=== PATIENT | male | born 1985 | race Caucasian/White ===

== ENCOUNTER 2016-04-29 21:40 | Inpatient (IN) | payer MEDICARE, OTHER ==
[2016-04-29 22:26] VITALS: BMI 21.9
--- NOTE | 2016-04-29 22:32 | HP ---
COWS - Scale Resting Pulse: 1= [place] 81-100 Sweatin=Flushed/Facial Moisture Restless Observation: 3= Extraneous Movement Pupil Size: 1= Pupils >than Normal Bone or Joint Aches: 4=Acute Joint/Muscle Pain Runny Nose/ Eye Tearin= Runny Nose/Eyes GI Upset > 30mins: 1= Stomach Cramp Tremor Observation: 2= Slight Tremor Visible Yawning Observation: 0= None Anxiety or Irritability: 2=Irritable/Anxious Goose Flesh Skin: 0=Smooth Skin COWS Score: 18 Admission ROS S - HPI Chief Complaint: WITHDRAWAL SX'S. SEEKING DETOX TXMENT Allergies/Adverse Reactions: Allergies Allergy/AdvReac Type Severity Reaction Status Date / Time No Known Allergies Allergy Verified 04/29/16 22:23 History of Present Illness: 89 Y.O MALE WITH OPIOID DEPENDENCE LAST HER 07/2015 ADMITTED FOR DETOX TXMENT. CLIENT DENIES ANY SIGNIFICANT CLEAN TIME. HE IS AWARE THAT HIS TXMENT WILL BE APPROX 7 DAYS AND HAS AGREED TO LOS. Exam Limitations: No Limitations - Ebola screening Have you traveled outside of the country in the last 21 days: No (N) Have you had contact with anyone from an Ebola affected area: No Have you been sick,other than usual withdrawal symptoms: No Do you have a fever: No - Review of Systems Constitutional: Chills, Loss of Appetite, Malaise, Night Sweats, Changes in sleep EENT: reports: Nose Congestion, Dental Problems (DENTAL PAIN) Respiratory: reports: No Symptoms reported Cardiac: reports: No Symptoms Reported GI: reports: Poor Appetite, Abdominal cramping : reports: No Symptoms Reported Musculoskeletal: reports: Back Pain, Joint Pain Integumentary: reports: No Symptoms Reported Neuro: reports: No Symptoms reported Endocrine: reports: No Symptoms Reported Hematology: reports: No Symptoms Reported Psychiatric: reports: No Sypmtoms Reported Other Systems: Reviewed and Negative Patient History - Patient Medical History Hx Anemia: No Hx Asthma: No Hx Chronic Obstructive Pulmonary Disease (COPD): No Hx Cancer: No Hx Cardiac Disorders: No Hx Congestive Heart Failure: No Hx Hypertension: No Hx Hypercholesterolemia: No Hx Pacemaker: No HX Cerebrovascular Accident: No Hx Seizures: No Hx Dementia: No Hx Diabetes: No Hx Gastrointestinal Disorders: No Hx Liver Disease: No Hx Genitourinary Disorders: No Hx Sexually Transmitted Disorders: No Hx Renal Disease (ESRD): No Hx Thyroid Disease: No Hx Human Immunodeficiency Virus (HIV): No Hx Hepatitis C: No Hx Depression: No Hx Suicide Attempt: No Hx Bipolar Disorder: No Hx Schizophrenia: No Other Medical History: DENIES - Patient Surgical History Past Surgical History: No Hx Neurologic Surgery: No Hx Cataract Extraction: No Hx Cardiac Surgery: No Hx Lung Surgery: No Hx Breast Surgery: No Hx Breast Biopsy: No Hx Abdominal Surgery: No Hx Appendectomy: No Hx Cholecystectomy: No Hx Genitourinary Surgery: No Hx Section: No Hx Orthopedic Surgery: No Anesthesia Reaction: No - PPD History Previous Implant?: Yes Documented Results: Negative w/proof Implanted On Prior [facility] Admission?: Yes Date: 03/20/15 Results: 0MM PPD to be Administered?: No - Smoking Cessation Smoking history: Current every day smoker Have you smoked in the past 12 months: Yes Aproximately how many cigarettes per day: 20 Hx Chewing Tobacco Use: No Initiated information on smoking cessation: Yes 'Breaking Loose' booklet given: 04/29/16 - Substance & Tx. History Hx Alcohol Use: No Hx Substance Use: Yes Substance Use Type: Heroin, Marijuana Hx Substance Use Treatment: Yes ([facility]) - Substances Abused HEROIN Route: Injection Frequency: Daily Amount used: 20 BAGS Age of first use: 26 Date of Last Use: 04/29/16 (10 BAGS) THC Route: Smoking Frequency: Daily Amount used: 1 JOINT Age of first use: 12 Date of Last Use: 04/27/16 Family Disease History - Family Disease History Family History: Denies Admission Physical Exam S - Vital Signs Vital Signs: Vital Signs - 24 hr 04/29/16 22:23 Temperature 96.0 F L Pulse Rate 81 Respiratory 20 Rate Blood Pressure 130/74 - Physical General Appearance: Yes: Appropriately Dressed, Mild Distress, Tremorous, Anxious HEENTM: Yes: EOMI, Normocephalic, Normal Voice, LINNETTE, Pharynx Normal, Nasal Congestion Respiratory: Yes: Chest Non-Tender, Lungs Clear, Normal Breath Sounds, No Respiratory Distress, No Accessory Muscle Use Neck: Yes: No masses,lesions,Nodules, Supple, Trachea in good position Breast: Yes: Breast Exam Deferred Cardiology: Yes: Regular Rhythm, Regular Rate, S1, S2 Abdominal: Yes: Normal Bowel Sounds, Non Tender, Soft Genitourinary: Yes: Within Normal Limits Back: Yes: Normal Inspection Musculoskeletal: Yes: full range of Motion, Gait Steady Extremities: Yes: Normal Capillary Refill, Normal Range of Motion, Non-Tender, Tremors Neurological: Yes: voltage tester II-XII NML intact, Fully Oriented, Alert, Motor Strength 5/5 Integumentary: Yes: Normal Color, Warm, Moist Lymphatic: Yes: Within Normal Limits - Diagnostic (1) Nicotine dependence Current Visit: No Status: Chronic Qualifiers: Nicotine product type: cigarettes Substance use status: uncomplicated Qualified Code(s): F17.210 - Nicotine dependence, cigarettes, uncomplicated (2) Cannabis dependence, uncomplicated Current Visit: Yes Status: Chronic (3) Uncomplicated opioid dependence Current Visit: Yes Status: Chronic Cleared for Admission [facility] - Detox or Rehab [facility] Level of Care: Medically Managed Detox Regimen/Protocol: Methadone [facility] Breath Alcohol Content Breath Alcohol Content: 0 Urine Drug Screen - Results Urine Drug Screen Results: THC-Marijuana, OPI-Opiates, OXY-Oxycodone
[2016-04-29] MEDS ORDERED: MAG HYDROX/AL HYDROX/SIMETH 30 ML UNIT-DOSE CUP PO PRN (22:40)
[2016-04-29] MEDS ORDERED: LOPERAMIDE HCL 2 MG CAPSULE PO PRN (22:40)
[2016-04-29] MEDS ORDERED: METHADONE HCL 10 MG TABLET (FOR DETOX USE ONLY) PO ONE ×2 (22:40→23:00)
[2016-04-29] MEDS ORDERED: NICOTINE POLACRILEX 2 MG GUM BC PRN (22:40)
[2016-04-29] MEDS ORDERED: MENTHOL/PHENOL 1 EACH UD MM PRN (22:40)
[2016-04-29] MEDS ORDERED: guaiFENesin/D-METHORPHAN HB 10 ML UNIT-DOSE CUPS PO PRN (22:40)
[2016-04-29] MEDS ORDERED: MAGNESIUM CITRATE 300 ML BOTTLE PO PRN (22:40)
[2016-04-29] MEDS ORDERED: ACETAMINOPHEN 325 MG TABLET (FP) PO PRN (22:40)
[2016-04-29] MEDS ORDERED: hydrOXYzine PAMOATE 50 MG CAPSULE (FP) PO PRN (22:40)
[2016-04-29] MEDS ORDERED: diphenhydrAMINE HCL 50 MG CAPSULE PO PRN (22:40)
[2016-04-29] MEDS ORDERED: IBUPROFEN 400 MG TABLET (FP) PO PRN (22:40)
[2016-04-29] MEDS ORDERED: P-EPHED 60MG/TRIPROLIDI 2.5MG TABLET PO PRN (22:40)
[2016-04-29] MEDS ORDERED: MAGNESIUM HYDROX 2400MG/30ML ORAL SUSPENSION 30 ML CUP PO PRN (22:40)
[2016-04-29] MEDS: diazePAM 5 MG TABLET PO PRN (23:36)
[2016-04-30] MEDS: diazePAM 5 MG TABLET PO PRN ×2 (08:29→20:11)
[2016-04-30] MEDS ORDERED: METHADONE HCL 10 MG TABLET (FOR DETOX USE ONLY) PO ONE (10:00)
[2016-04-30] MEDS ORDERED: NICOTINE 21 MG/24 HOURS TOPICAL PATCH TD SCH (10:00)
[2016-04-30] MEDS ORDERED: PRENATAL VITAMINS W/ FOLIC ACID TABLET (FP) PO SCH (10:00)
[2016-04-30 10:15] LABS: ALBUMIN 3.2 g/dl (3.4-5.0)
[2016-04-30 10:18] LABS: ALK PHOS 81 U/L (45-117); ANION GAP 8 (8-16); BILIRUBIN,TOTAL 0.1 mg/dL (0.2-1.0); CALCIUM 8.6 mg/dL (8.5-10.1); CO2 28 mmol/L (21-32); CREATININE 0.8 mg/dL (0.7-1.3); GLUCOSE,RANDOM 81 mg/dL (74-106); SGOT/AST 18 U/L (15-37); SGPT/ALT 21 U/L (12-78); TOT PROT 6.2 g/dl (6.4-8.2)
[2016-04-30 10:31] LABS: MCH 26.4 pg (25.7-33.7); MCHC 32.1 g/dl (32.0-35.9); MEAN CELL VOLUME 82.4 fl (80-96); MEAN PLT VOLUME 8.9 fl (7.5-11.1); PLATELET COUNT 212 K/MM3 (134-434); RDW 15.9 % (11.9-15.9)
--- NOTE | 2016-04-30 13:35 | EKG ---
Test Reason : Blood Pressure : / mmHG Vent. Rate : 069 BPM Atrial Rate : 069 BPM P-R Int : 126 ms QRS Dur : 088 ms QT Int : 392 ms P-R-T Axes : 034 023 035 degrees QTc Int : 420 ms NORMAL SINUS RHYTHM NORMAL ECG NO PREVIOUS ECGS AVAILABLE Confirmed by YOSELIN LIN MD ([id number]) on 04/30/2016 1:35:11 PM Referred By: Confirmed By:YOSELIN LIN MD
--- NOTE | 2016-04-30 17:49 | PN ---
S COWS - Scale Resting Pulse: 0= [place] 80 or Below Sweatin=Flushed/Facial Moisture Restless Observation: 1= Difficult to Sit Still Pupil Size: 0= Normal to Room Light Bone or Joint Aches: 2= Severe Diffuse Aches Runny Nose/ Eye Tearin= Nasal Congestion GI Upset > 30mins: 2= Nausea/Diarrhea Tremor Observation of Outstretched Hands: 2= Slight Tremor Visible Yawning Observation: 1= 1-2x During Session Anxiety or Irritability: 2=Irritable/Anxious Goose Flesh Skin: 0=Smooth Skin COWS Score: 13 BHS Progress Note (SOAP) Subjective: ANXIETY,TREMORS,INTERRUPTED SLEEP,RESTLESS,BODY ACHES Objective: 04/30/16 17:48 Laboratory Last Values WBC 8.0 K/mm3 (4.0-10.0) 04/30/16 07:00 RBC 4.32 M/mm3 (4.00-5.60) 04/30/16 07:00 Hgb 11.4 GM/dL (11.7-16.9) L 04/30/16 07:00 Hct 35.6 % (35.4-49) 04/30/16 07:00 MCV 82.4 fl (80-96) 04/30/16 07:00 MCHC 32.1 g/dl (32.0-35.9) 04/30/16 07:00 RDW 15.9 % (11.9-15.9) 04/30/16 07:00 Plt Count 212 K/MM3 (134-434) 04/30/16 07:00 MPV 8.9 fl (7.5-11.1) 04/30/16 07:00 Sodium 142 mmol/L (136-145) 04/30/16 07:00 Potassium 4.3 mmol/L (3.5-5.1) 04/30/16 07:00 Chloride 106 mmol/L (98-107) 04/30/16 07:00 Carbon Dioxide 28 mmol/L (21-32) 04/30/16 07:00 Anion Gap 8 (8-16) 04/30/16 07:00 BUN 21 mg/dL (7-18) H 04/30/16 07:00 Creatinine 0.8 mg/dL (0.7-1.3) 04/30/16 07:00 Creat Clearance w eGFR > 60 (>60) 04/30/16 07:00 Random Glucose 81 mg/dL (74-106) 04/30/16 07:00 Calcium 8.6 mg/dL (8.5-10.1) 04/30/16 07:00 Total Bilirubin 0.1 mg/dL (0.2-1.0) L D 04/30/16 07:00 AST 18 U/L (15-37) D 04/30/16 07:00 ALT 21 U/L (12-78) D 04/30/16 07:00 Alkaline Phosphatase 81 U/L (45-117) 04/30/16 07:00 Total Protein 6.2 g/dl (6.4-8.2) L 04/30/16 07:00 Albumin 3.2 g/dl (3.4-5.0) L 04/30/16 07:00 RPR Titer Nonreactive (NONREACTIVE) 04/30/16 07:00 LABS NOTED Vital Signs - 8 hr 04/30/16 04/30/16 13:19 17:28 Temperature 97.3 F L 97.4 F L Pulse Rate 63 60 Respiratory 18 16 Rate Blood Pressure 116/74 117/71 Assessment: 04/30/16 17:49 WITHDRAWAL SX. Plan: CONTINUE DETOX
[2016-04-30 21:48] LABS: URINE APPEARANCE CLEAR; URINE BILIRUBIN NEGATIVE (NEGATIVE); URINE BLOOD NEGATIVE (NEGATIVE); URINE COLOR LTYELLOW; URINE GLUCOSE (UA) NEGATIVE (NEGATIVE); URINE KETONE NEGATIVE (NEGATIVE); URINE LEUK ESTERASE NEGATIVE (NEGATIVE); URINE NITRITE NEGATIVE (NEGATIVE); URINE PROTEIN NEGATIVE (NEGATIVE); URINE UROBILINOGEN NEGATIVE E.U./dl (0.2-1.0)
[2016-04-30] MEDS ORDERED: THIAMINE HCL 100 MG TABLET (FP) PO SCH (22:00)
[2016-05-01 07:00] VITALS: BP 130/92; PULSE 59; TEMP 96.3
[2016-05-01] MEDS ORDERED: METHADONE HCL 5 MG TABLET (FOR DETOX USE ONLY) PO ONE (10:00)
--- NOTE | 2016-05-01 10:32 | DS ---
[facility] Detox Discharge Summary Admission Date: 04/29/16 Discharge Date: 05/01/16 - History Present History: Cannabis Dependence, Opioid Dependence Pertinent Past History: INSOMNIA - Physical Exam Results Vital Signs: Vital Signs Temperature 96.3 F L 05/01/16 06:59 Pulse Rate 59 L 05/01/16 06:59 Respiratory Rate 18 05/01/16 06:59 Blood Pressure 130/92 05/01/16 06:59 O2 Sat by Pulse Oximetry (%) Pertinent Admission Physical Exam Findings: WITHDRAWAL SX. Laboratory Tests 04/30/16 04/30/16 04/30/16 07:00 07:00 07:00 WBC 8.0 RBC 4.32 Hgb 11.4 L Hct 35.6 MCV 82.4 MCHC 32.1 RDW 15.9 Plt Count 212 MPV 8.9 Sodium 142 Potassium 4.3 Chloride 106 Carbon Dioxide 28 Anion Gap 8 BUN 21 H Creatinine 0.8 Creat Clearance w eGFR > 60 Random Glucose 81 Calcium 8.6 Total Bilirubin 0.1 L D AST 18 D ALT 21 D Alkaline Phosphatase 81 Total Protein 6.2 L Albumin 3.2 L Urine Color Urine Appearance Urine pH Ur Specific [place] Urine Protein Urine Glucose (UA) Urine Ketones Urine Blood Urine Nitrite Urine Bilirubin Urine Urobilinogen Ur Leukocyte Esterase RPR Titer Nonreactive 04/30/16 20:30 WBC RBC Hgb Hct MCV MCHC RDW Plt Count MPV Sodium Potassium Chloride Carbon Dioxide Anion Gap BUN Creatinine Creat Clearance w eGFR Random Glucose Calcium Total Bilirubin AST ALT Alkaline Phosphatase Total Protein Albumin Urine Color Ltyellow Urine Appearance Clear Urine pH 6.0 D Ur Specific [place] 1.026 Urine Protein Negative Urine Glucose (UA) Negative Urine Ketones Negative Urine Blood Negative Urine Nitrite Negative Urine Bilirubin Negative Urine Urobilinogen Negative Ur Leukocyte Esterase Negative RPR Titer LABS NOTED - Medication Discharge Medications: Ambulatory Orders NK [No Known Home Medication] 12/12/13 - Diagnosis (1) Cannabis dependence, uncomplicated Current Visit: Yes Status: Chronic (2) Insomnia Current Visit: No Status: Chronic Qualifiers: Insomnia type: alcohol-induced Qualified Code(s): 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
[2016-05-02] MEDS ORDERED: METHADONE HCL 5 MG TABLET (FOR DETOX USE ONLY) PO ONE (10:00)
[2016-05-03] MEDS ORDERED: METHADONE HCL 10 MG TABLET (FOR DETOX USE ONLY) PO ONE (10:00)
[2016-05-04] MEDS ORDERED: METHADONE HCL 5 MG TABLET (FOR DETOX USE ONLY) PO ONE (06:00)
== END 2016-05-01 09:30 | disposition left against medical advice (07) | DRG 770 ==
LOC: YASAS 21:40 → Y3N 22:36
PROVIDERS: ADMIT Internal Medicine; ATTEND Internal Medicine
PROC: HZ2ZZZZ Detoxification Services for Substance Abuse Treatment (ICD-10-PCS; principal; 2016-05-01)
DX: F11.23 Opioid dependence with withdrawal (principal); F14.20 Cocaine dependence, uncomplicated; F17.210 Nicotine dependence, cigarettes, uncomplicated; F10.982 Alcohol use, unspecified with alcohol-induced sleep disorder
CPT/HCPCS: 36415; 80053; 81003; 85027; 86593; 93005; 93010

== ENCOUNTER 2016-12-09 19:15 | Inpatient (IN) | payer OTHER ==
[2016-12-09 19:55] VITALS: BMI 20.3
--- NOTE | 2016-12-09 21:15 | HP ---
COWS - Scale Resting Pulse: 0= [place] 80 or Below Sweatin=Flushed/Facial Moisture Restless Observation: 5= Unable to Sit Still Pupil Size: 0= Normal to Room Light Bone or Joint Aches: 4=Acute Joint/Muscle Pain Runny Nose/ Eye Tearin= None GI Upset > 30mins: 3= Vomiting/Diarrhea Tremor Observation: 2= Slight Tremor Visible Yawning Observation: 0= None Anxiety or Irritability: 2=Irritable/Anxious Goose Flesh Skin: 0=Smooth Skin COWS Score: 18 Admission [facility] Chief Complaint: C/O WITHDRAWAL SX'S SEEKING DETOX Allergies/Adverse Reactions: Allergies Allergy/AdvReac Type Severity Reaction Status Date / Time No Known Allergies Allergy Verified 04/29/16 22:23 History of Present Illness: 31 Y.O. MALE WITH OPIOID DEPENDENCE ADMITTED TO DETOX. CLIENT IS KNOWN TO [facility]. DENIES ANY DETOX/ REHAB SERVICES SINCE LAST ADMISSION/2016. SELF REFFERED. DENIES ANY SIGNIFICANT PERIOD OF CLEAN TIME Exam Limitations: No Limitations - Ebola screening Have you traveled outside of the country in the last 21 days: No (N) Have you had contact with anyone from an Ebola affected area: No Have you been sick,other than usual withdrawal symptoms: No Do you have a fever: No - Review of Systems Constitutional: Chills, Loss of Appetite, Night Sweats, Changes in sleep EENT: reports: Dental Problems (MISSING TEETH) Respiratory: reports: No Symptoms reported Cardiac: reports: No Symptoms Reported GI: reports: Diarrhea, Nausea, Poor Appetite : reports: No Symptoms Reported Musculoskeletal: reports: Back Pain Integumentary: reports: No Symptoms Reported Neuro: reports: No Symptoms reported Endocrine: reports: No Symptoms Reported Psychiatric: reports: No Sypmtoms Reported Other Systems: Reviewed and Negative Patient History - Patient Medical History Hx Anemia: No Hx Asthma: No Hx Chronic Obstructive Pulmonary Disease (COPD): No Hx Cancer: No Hx Cardiac Disorders: No Hx Congestive Heart Failure: No Hx Hypertension: No Hx Hypercholesterolemia: No Hx Pacemaker: No HX Cerebrovascular Accident: No Hx Seizures: No Hx Dementia: No Hx Diabetes: No Hx Gastrointestinal Disorders: No Hx Liver Disease: No Hx Genitourinary Disorders: No Hx Sexually Transmitted Disorders: No Hx Renal Disease (ESRD): No Hx Thyroid Disease: No Hx Human Immunodeficiency Virus (HIV): No Hx Hepatitis C: No Hx Depression: No Hx Suicide Attempt: No Hx Bipolar Disorder: No Hx Schizophrenia: No Other Medical History: DENIES - Patient Surgical History Past Surgical History: No Hx Neurologic Surgery: No Hx Cataract Extraction: No Hx Cardiac Surgery: No Hx Lung Surgery: No Hx Breast Surgery: No Hx Breast Biopsy: No Hx Abdominal Surgery: No Hx Appendectomy: No Hx Cholecystectomy: No Hx Genitourinary Surgery: No Hx Section: No Hx Orthopedic Surgery: No Anesthesia Reaction: No - PPD History Previous Implant?: Yes Documented Results: Negative w/proof Implanted On Prior [facility] Admission?: Yes Date: 03/20/15 Results: 0MM PPD to be Administered?: Yes - Smoking Cessation Smoking history: Current every day smoker Have you smoked in the past 12 months: Yes Aproximately how many cigarettes per day: 20 Cigars Per Day: 0 Hx Chewing Tobacco Use: No Initiated information on smoking cessation: Yes 'Breaking Loose' booklet given: 12/09/16 - Substance & Tx. History Hx Alcohol Use: No Hx Substance Use: Yes Substance Use Type: Cocaine, Heroin, Marijuana Hx Substance Use Treatment: Yes ([facility]) - Substances Abused HEROIN Route: Injection Frequency: Daily Amount used: 10BAGS Age of first use: 25 Date of Last Use: 12/08/16 THC Route: Smoking Frequency: 1-2 times per week Amount used: 1 JOINT Age of first use: 12 Date of Last Use: 12/05/16 COCAINE Route: Smoking Frequency: Daily Amount used: $100 Age of first use: 25 Date of Last Use: 12/08/16 Family Disease History - Family Disease History Family History: Denies Admission Physical Exam [facility] - Vital Signs Vital Signs: Vital Signs - 24 hr 12/09/16 19:53 Temperature 98.2 F Pulse Rate 76 Respiratory 18 Rate Blood Pressure 140/80 - Physical General Appearance: Yes: Appropriately Dressed, Mild Distress, Tremorous HEENTM: Yes: EOMI, Normal ENT Inspection, Normocephalic, LINNETTE, Pharynx Normal Respiratory: Yes: Chest Non-Tender, Lungs Clear, Normal Breath Sounds, No Respiratory Distress, No Accessory Muscle Use Neck: Yes: No masses,lesions,Nodules, Supple, Trachea in good position Breast: Yes: Breast Exam Deferred Cardiology: Yes: Regular Rhythm, Regular Rate, S1, S2 Abdominal: Yes: Normal Bowel Sounds, Non Tender, Soft Genitourinary: Yes: Within Normal Limits Back: Yes: Normal Inspection Musculoskeletal: Yes: full range of Motion, Gait Steady Extremities: Yes: Normal Capillary Refill, Normal Range of Motion, Non-Tender, Tremors Neurological: Yes: juice standardizer II-XII NML intact, Fully Oriented, Alert, Motor Strength 5/5 Integumentary: Yes: Warm, Moist, Track Mcn[place] Lymphatic: Yes: Within Normal Limits - Diagnostic (1) Cannabis dependence, uncomplicated Current Visit: Yes Status: Chronic (2) Nicotine dependence Current Visit: Yes Status: Chronic Qualifiers: Nicotine product type: cigarettes Substance use status: uncomplicated Qualified Code(s): F17.210 - Nicotine dependence, cigarettes, uncomplicated (3) Opioid dependence with withdrawal Current Visit: Yes Status: Chronic (4) Cocaine dependence, uncomplicated Current Visit: Yes Status: Chronic Cleared for Admission [facility] - Detox or Rehab [facility] Level of Care: Medically Managed Detox Regimen/Protocol: Methadone [facility] Breath Alcohol Content Breath Alcohol Content: 0 Urine Drug Screen - Results Drug Screen Negative: No Urine Drug Screen Results: THC-Marijuana, BUDDY-Cocaine, OPI-Opiates
[2016-12-09] MEDS ORDERED: MAGNESIUM CITRATE 300 ML BOTTLE PO PRN (21:29)
[2016-12-09] MEDS ORDERED: LOPERAMIDE HCL 2 MG CAPSULE PO PRN (21:29)
[2016-12-09] MEDS ORDERED: MENTHOL/PHENOL 1 EACH UD MM PRN (21:29)
[2016-12-09] MEDS ORDERED: guaiFENesin/D-METHORPHAN HB 10 ML UNIT-DOSE CUPS PO PRN (21:29)
[2016-12-09] MEDS ORDERED: METHADONE HCL 10 MG TABLET (FOR DETOX USE ONLY) PO ONE ×2 (21:29→23:00)
[2016-12-09] MEDS ORDERED: ACETAMINOPHEN 325 MG TABLET (FP) PO PRN (21:29)
[2016-12-09] MEDS ORDERED: MAGNESIUM HYDROX 2400MG/30ML ORAL SUSPENSION 30 ML CUP PO PRN (21:29)
[2016-12-09] MEDS ORDERED: P-EPHED 60MG/TRIPROLIDI 2.5MG TABLET PO PRN (21:29)
[2016-12-09] MEDS ORDERED: IBUPROFEN 400 MG TABLET (FP) PO PRN (21:29)
[2016-12-09] MEDS ORDERED: NICOTINE POLACRILEX 2 MG GUM BUC PRN (21:29)
[2016-12-09] MEDS ORDERED: MAG HYDROX/AL HYDROX/SIMETH 30 ML UNIT-DOSE CUP PO PRN (21:29)
[2016-12-09] MEDS: diazePAM 5 MG TABLET PO PRN (23:10)
[2016-12-09] MEDS: THIAMINE HCL 100 MG TABLET (FP) PO SCH (23:13)
[2016-12-10] MEDS ORDERED: METHADONE HCL 10 MG TABLET (FOR DETOX USE ONLY) PO ONE (10:00)
[2016-12-10 10:06] LABS: MCH 26.1 pg (25.7-33.7); MEAN CELL VOLUME 81.7 fl (80-96); MEAN PLT VOLUME 8.8 fl (7.5-11.1); PLATELET COUNT 213 K/MM3 (134-434); RDW 14.9 % (11.9-15.9); WHITE BLOOD COUNT 6.7 K/mm3 (4.0-10.0)
[2016-12-10] MEDS: PRENATAL VITAMINS W/ FOLIC ACID TABLET (FP) PO SCH (10:19)
[2016-12-10] MEDS: NICOTINE 14 MG/24 HOURS TOPICAL PATCH TD SCH (10:20)
[2016-12-10] MEDS: diazePAM 5 MG TABLET PO PRN ×2 (10:24→22:19)
[2016-12-10] MEDS ORDERED: ONDANSETRON *ODT* 4 MG TABLET SL PRN (10:41)
[2016-12-10 10:53] LABS: ALBUMIN 3.3 g/dl (3.4-5.0); ALK PHOS 76 U/L (45-117); ANION GAP 6 (8-16); BILIRUBIN,TOTAL 0.2 mg/dL (0.2-1.0); CALCIUM 8.6 mg/dL (8.5-10.1); CO2 28 mmol/L (21-32); CREATININE 0.6 mg/dL (0.7-1.3); GLUCOSE,RANDOM 84 mg/dL (74-106); SGOT/AST 20 U/L (15-37); SGPT/ALT 23 U/L (12-78); TOT PROT 6.6 g/dl (6.4-8.2)
--- NOTE | 2016-12-10 12:14 | EKG ---
Test Reason : Blood Pressure : / mmHG Vent. Rate : 061 BPM Atrial Rate : 061 BPM P-R Int : 124 ms QRS Dur : 086 ms QT Int : 420 ms P-R-T Axes : 053 031 033 degrees QTc Int : 422 ms NORMAL SINUS RHYTHM NORMAL ECG WHEN COMPARED WITH ECG OF 09-DEC-2016 23:19, NO SIGNIFICANT CHANGE WAS FOUND Confirmed by YOSELIN LIN MD ([id number]) on 12/10/2016 12:14:26 PM Referred By: Confirmed By:YOSELIN LIN MD
--- NOTE | 2016-12-10 12:15 | EKG ---
Test Reason : Blood Pressure : / mmHG Vent. Rate : 052 BPM Atrial Rate : 052 BPM P-R Int : 122 ms QRS Dur : 088 ms QT Int : 444 ms P-R-T Axes : 060 036 045 degrees QTc Int : 412 ms SINUS BRADYCARDIA WITH SINUS ARRHYTHMIA OTHERWISE NORMAL ECG WHEN COMPARED WITH ECG OF 29-APR-2016 23:45, T WAVE AMPLITUDE HAS INCREASED IN ANTERIOR LEADS Confirmed by RILEY LUNA, YOSELIN ([id number]) on 12/10/2016 12:14:51 PM Referred By: Confirmed By:YOSELIN LIN MD
[2016-12-10] MEDS ORDERED: CYCLOBENZAPRINE HCL 10 MG TABLET (FP) PO PRN (15:45)
--- NOTE | 2016-12-10 15:46 | PN ---
BHS COWS - Scale Resting Pulse: 0= [place] 80 or Below Sweatin= Chills/Flushing Restless Observation: 1= Difficult to Sit Still Pupil Size: 0= Normal to Room Light Bone or Joint Aches: 2= Severe Diffuse Aches Runny Nose/ Eye Tearin= Nasal Congestion GI Upset > 30mins: 3= Vomiting/Diarrhea Tremor Observation of Outstretched Hands: 2= Slight Tremor Visible Yawning Observation: 1= 1-2x During Session Anxiety or Irritability: 2=Irritable/Anxious Goose Flesh Skin: 0=Smooth Skin COWS Score: 13 BHS Progress Note (SOAP) Subjective: Body Aches, Stomach Cramping, Vomiting, Tremors, H/A, Diarrhea, Interrupted sleep, Sweating. Objective: PT. A & O X 3, OBSERVED AMBULATING ON UNIT. NO ACUTE DISTRESS. PT. DENIES CHEST PAIN. 12/10/16 15:47 Vital Signs Temperature 97.6 F 12/10/16 09:26 Pulse Rate 74 12/10/16 09:26 Respiratory Rate 16 12/10/16 09:26 Blood Pressure 131/86 12/10/16 09:26 O2 Sat by Pulse Oximetry (%) Laboratory Tests 12/10/16 12/10/16 12/10/16 07:00 07:00 07:00 WBC 6.7 RBC 4.37 Hgb 11.4 L Hct 35.7 MCV 81.7 MCH 26.1 MCHC 32.0 RDW 14.9 Plt Count 213 MPV 8.8 Sodium 140 Potassium 4.3 Chloride 106 Carbon Dioxide 28 Anion Gap 6 L BUN 14 D Creatinine 0.6 L D Creat Clearance w eGFR > 60 Random Glucose 84 Calcium 8.6 Total Bilirubin 0.2 D AST 20 ALT 23 Alkaline Phosphatase 76 Total Protein 6.6 Albumin 3.3 L RPR Titer Nonreactive LABS NOTED. HCV AB AND UA RESULTS PENDING. 12/10/16 15:48 Assessment: 12/10/16 15:48 WITHDRAWAL SYMPTOMS. Plan: CONTINUE DETOX. PRN ZOFRAN SL FOR NAUSEA / VOMITING. PRN FLEXERIL PO FOR BODY ACHES / MUSCLE SPASMS. PRN IMMODIUM FOR DIARRHEA.
[2016-12-10 17:20] LABS: URINE APPEARANCE CLEAR; URINE BILIRUBIN NEGATIVE (NEGATIVE); URINE BLOOD NEGATIVE (NEGATIVE); URINE COLOR LTYELLOW; URINE GLUCOSE (UA) NEGATIVE (NEGATIVE); URINE KETONE NEGATIVE (NEGATIVE); URINE LEUK ESTERASE NEGATIVE (NEGATIVE); URINE NITRITE NEGATIVE (NEGATIVE); URINE PROTEIN NEGATIVE (NEGATIVE); URINE UROBILINOGEN NEGATIVE mg/dL (0.2-1.0)
[2016-12-10] MEDS: hydrOXYzine PAMOATE 50 MG CAPSULE (FP) PO PRN (17:32)
[2016-12-10] MEDS: THIAMINE HCL 100 MG TABLET (FP) PO SCH (22:17)
[2016-12-10] MEDS: diphenhydrAMINE HCL 50 MG CAPSULE PO PRN (22:18)
[2016-12-11] MEDS: diphenhydrAMINE HCL 50 MG CAPSULE PO PRN (00:52)
[2016-12-11] MEDS: hydrOXYzine PAMOATE 50 MG CAPSULE (FP) PO PRN (03:21)
[2016-12-11] MEDS: diazePAM 5 MG TABLET PO PRN ×2 (03:21→09:31)
[2016-12-11] MEDS: PRENATAL VITAMINS W/ FOLIC ACID TABLET (FP) PO SCH (09:31)
[2016-12-11] MEDS: NICOTINE 14 MG/24 HOURS TOPICAL PATCH TD SCH (09:31)
[2016-12-11] MEDS ORDERED: METHADONE HCL 5 MG TABLET (FOR DETOX USE ONLY) PO ONE (10:00)
--- NOTE | 2016-12-11 15:52 | PN ---
BHS COWS - Scale Resting Pulse: 0= [place] 80 or Below Sweatin=Flushed/Facial Moisture Restless Observation: 1= Difficult to Sit Still Pupil Size: 0= Normal to Room Light Bone or Joint Aches: 2= Severe Diffuse Aches Runny Nose/ Eye Tearin= Runny Nose/Eyes GI Upset > 30mins: 2= Nausea/Diarrhea Tremor Observation of Outstretched Hands: 2= Slight Tremor Visible Yawning Observation: 1= 1-2x During Session Anxiety or Irritability: 2=Irritable/Anxious Goose Flesh Skin: 0=Smooth Skin COWS Score: 14 BHS Progress Note (SOAP) Subjective: Anxiety,tremors,sweating,interrupted sleep,restless,body aches. Objective: 12/11/16 15:51 Vital Signs - 8 hr 12/11/16 12/11/16 09:43 13:09 Temperature 96.9 F L 97.0 F L Pulse Rate 63 43 L Respiratory 18 18 Rate Blood Pressure 123/84 124/84 Laboratory Tests 12/09/16 12/10/16 12/10/16 07:00 07:00 07:00 WBC 6.7 RBC 4.37 Hgb 11.4 L Hct 35.7 MCV 81.7 MCH 26.1 MCHC 32.0 RDW 14.9 Plt Count 213 MPV 8.8 Sodium 140 Potassium 4.3 Chloride 106 Carbon Dioxide 28 Anion Gap 6 L BUN 14 D Creatinine 0.6 L D Creat Clearance w eGFR > 60 Random Glucose 84 Calcium 8.6 Total Bilirubin 0.2 D AST 20 ALT 23 Alkaline Phosphatase 76 Total Protein 6.6 Albumin 3.3 L Urine Color Urine Appearance Urine pH Ur Specific [place] Urine Protein Urine Glucose (UA) Urine Ketones Urine Blood Urine Nitrite Urine Bilirubin Urine Urobilinogen RPR Titer Hepatitis C Antibody 0.2 12/10/16 12/10/16 07:00 16:56 WBC RBC Hgb Hct MCV MCH MCHC RDW Plt Count MPV Sodium Potassium Chloride Carbon Dioxide Anion Gap BUN Creatinine Creat Clearance w eGFR Random Glucose Calcium Total Bilirubin AST ALT Alkaline Phosphatase Total Protein Albumin Urine Color Ltyellow Urine Appearance Clear Urine pH 8.0 D Ur Specific [place] 1.015 Urine Protein Negative Urine Glucose (UA) Negative Urine Ketones Negative Urine Blood Negative Urine Nitrite Negative Urine Bilirubin Negative Urine Urobilinogen Negative RPR Titer Nonreactive Hepatitis C Antibody labs noted Assessment: 12/11/16 15:51 Withdrawal sx. Plan: Continue detox
[2016-12-11 21:44] VITALS: BP 126/94; PULSE 64; TEMP 97.2
[2016-12-11] MEDS ORDERED: ZOLPIDEM TARTRATE 10 MG TABLET (PARK CARE ONLY) PO PRN (22:00)
[2016-12-11] MEDS: THIAMINE HCL 100 MG TABLET (FP) PO SCH (22:28)
[2016-12-12] MEDS ORDERED: METHADONE HCL 5 MG TABLET (FOR DETOX USE ONLY) PO ONE (10:00)
--- NOTE | 2016-12-12 11:55 | DS ---
[facility] Detox Discharge Summary Admission Date: 12/09/16 Discharge Date: 12/12/16 - History Present History: Opioid Dependence Additional Comments: PT SIGNED OUT AMA FOR PERSONAL REASONS STATING " I CAME HERE ON MY OWN SO I'M LEAVING' STATES HE HAS NOT SLEPT MUCH. OFFERED PT RE-EVALUATION OF HIS SLEEPING AID BUT PATIENT REFUSED. Pertinent Past History: DENIES/UNREMARKABLE - Physical Exam Results Vital Signs: Vital Signs Temperature 97.2 F L 12/11/16 21:44 Pulse Rate 64 12/11/16 21:44 Respiratory Rate 18 12/12/16 03:30 Blood Pressure 126/94 12/11/16 21:44 O2 Sat by Pulse Oximetry (%) Pertinent Admission Physical Exam Findings: WITHDRAWAL SX Vital Signs Temperature 97.2 F L 12/11/16 21:44 Pulse Rate 64 12/11/16 21:44 Respiratory Rate 18 12/12/16 03:30 Blood Pressure 126/94 12/11/16 21:44 O2 Sat by Pulse Oximetry (%) Laboratory Last Values WBC 6.7 K/mm3 (4.0-10.0) 12/10/16 07:00 RBC 4.37 M/mm3 (4.00-5.60) 12/10/16 07:00 Hgb 11.4 GM/dL (11.7-16.9) L 12/10/16 07:00 Hct 35.7 % (35.4-49) 12/10/16 07:00 MCV 81.7 fl (80-96) 12/10/16 07:00 MCH 26.1 pg (25.7-33.7) 12/10/16 07:00 MCHC 32.0 g/dl (32.0-35.9) 12/10/16 07:00 RDW 14.9 % (11.9-15.9) 12/10/16 07:00 Plt Count 213 K/MM3 (134-434) 12/10/16 07:00 MPV 8.8 fl (7.5-11.1) 12/10/16 07:00 Sodium 140 mmol/L (136-145) 12/10/16 07:00 Potassium 4.3 mmol/L (3.5-5.1) 12/10/16 07:00 Chloride 106 mmol/L (98-107) 12/10/16 07:00 Carbon Dioxide 28 mmol/L (21-32) 12/10/16 07:00 Anion Gap 6 (8-16) L 12/10/16 07:00 BUN 14 mg/dL (7-18) D 12/10/16 07:00 Creatinine 0.6 mg/dL (0.7-1.3) L D 12/10/16 07:00 Creat Clearance w eGFR > 60 (>60) 12/10/16 07:00 Random Glucose 84 mg/dL (74-106) 12/10/16 07:00 Calcium 8.6 mg/dL (8.5-10.1) 12/10/16 07:00 Total Bilirubin 0.2 mg/dL (0.2-1.0) D 12/10/16 07:00 AST 20 U/L (15-37) 12/10/16 07:00 ALT 23 U/L (12-78) 12/10/16 07:00 Alkaline Phosphatase 76 U/L (45-117) 12/10/16 07:00 Total Protein 6.6 g/dl (6.4-8.2) 12/10/16 07:00 Albumin 3.3 g/dl (3.4-5.0) L 12/10/16 07:00 Urine Color Ltyellow 12/10/16 16:56 Urine Appearance Clear 12/10/16 16:56 Urine pH 8.0 (5.0-8.0) D 12/10/16 16:56 Ur Specific [place] 1.015 (1.005-1.025) 12/10/16 16:56 Urine Protein Negative (NEGATIVE) 12/10/16 16:56 Urine Glucose (UA) Negative (NEGATIVE) 12/10/16 16:56 Urine Ketones Negative (NEGATIVE) 12/10/16 16:56 Urine Blood Negative (NEGATIVE) 12/10/16 16:56 Urine Nitrite Negative (NEGATIVE) 12/10/16 16:56 Urine Bilirubin Negative (NEGATIVE) 12/10/16 16:56 Urine Urobilinogen Negative mg/dL (0.2-1.0) 12/10/16 16:56 RPR Titer Nonreactive (NONREACTIVE) 12/10/16 07:00 Hepatitis C Antibody 0.2 s/co ratio (0.0-0.9) 12/09/16 07:00 - Treatment Hospital Course: Discharged Condition Good - Medication Discharge Medications: Ambulatory Orders NK [No Known Home Medication] 12/12/13 - AMA Did Patient Leave Against Medical Advice: Yes (AMStephani)
[2016-12-13] MEDS ORDERED: METHADONE HCL 10 MG TABLET (FOR DETOX USE ONLY) PO ONE (10:00)
[2016-12-14] MEDS ORDERED: METHADONE HCL 5 MG TABLET (FOR DETOX USE ONLY) PO ONE (06:00)
== END 2016-12-12 09:06 | disposition left against medical advice (07) | DRG 770 ==
LOC: YASAS 19:15 → Y3N 21:56
PROVIDERS: ADMIT Internal Medicine; ATTEND Internal Medicine
PROC: HZ2ZZZZ Detoxification Services for Substance Abuse Treatment (ICD-10-PCS; principal; 2016-12-09)
DX: F11.23 Opioid dependence with withdrawal (principal); F14.20 Cocaine dependence, uncomplicated; F12.20 Cannabis dependence, uncomplicated; F17.213 Nicotine dependence, cigarettes, with withdrawal
CPT/HCPCS: 36415; 80053; 81003; 85027; 86593; 86803; 93005; 93010

== ENCOUNTER 2017-02-18 20:54 | Inpatient (IN) | payer OTHER ==
[2017-02-18 21:49] VITALS: BMI 20.2
--- NOTE | 2017-02-18 22:56 | HP ---
COWS - Scale Resting Pulse: 0= [place] 80 or Below Sweatin=Flushed/Facial Moisture Restless Observation: 0= Sits Still Pupil Size: 1= Pupils >than Normal Bone or Joint Aches: 4=Acute Joint/Muscle Pain Runny Nose/ Eye Tearin= Runny Nose/Eyes GI Upset > 30mins: 3= Vomiting/Diarrhea (vomiting x 4, diarrhea x 3) Tremor Observation: 2= Slight Tremor Visible Yawning Observation: 1= 1-2x During Session Anxiety or Irritability: 2=Irritable/Anxious Goose Flesh Skin: 3=Piloerection COWS Score: 20 CIWA Score - CIWA Score Nausea/Vomitin (vomiting x 4) Muscle Tremors: 4-Moderate,w/Arms Extend Anxiety: 4-Mod. Anxious/Guarded Agitation: 2 Paroxysmal Sweats: 1-Minimal Palms Moist Orientation: 1-Uncertain about Date Tacttile Disturbances: 0-None Auditory Disturbances: 0-None Visual Disturbances: 0-None Headache: 4-Moderately Severe CIWA-Ar Total Score: 21 Admission [facility] - HPI Chief Complaint: Alcohol and heroin withdrawal symptoms Allergies/Adverse Reactions: Allergies Allergy/AdvReac Type Severity Reaction Status Date / Time No Known Allergies Allergy Verified 02/19/17 01:05 History of Present Illness: 32 years old male with a long history of heroin, alcohol, cocaine and marijuana dependence is admitted to detox. Patient has been in previous detox at [facility] and denies any significant period of sobriety. He denies past medical history and suicidal ideation. Patient states, "My goal is to stay positive and stop using drugs." Exam Limitations: No Limitations - Ebola screening Have you traveled outside of the country in the last 21 days: No Have you had contact with anyone from an Ebola affected area: No Have you been sick,other than usual withdrawal symptoms: No Do you have a fever: No - Review of Systems Constitutional: Chills, Loss of Appetite, Malaise, Night Sweats, Changes in sleep, Unexplained wgt Loss EENT: reports: No Symptoms Reported Respiratory: reports: Productive cough (yelowish phlegm) Cardiac: reports: Chest Pain (when patient coughs) GI: reports: Diarrhea, Poor Appetite, Poor Fluid Intake : reports: No Symptoms Reported Musculoskeletal: reports: Back Pain, Muscle Pain, Muscle Weakness Integumentary: reports: Flushing Neuro: reports: Headache, Seizure (alcohol related seizure), Tingling, Tremors Endocrine: reports: No Symptoms Reported Hematology: reports: No Symptoms Reported Psychiatric: reports: Orientated x3, Anxious, Depressed Other Systems: Reviewed and Negative Patient History - Patient Medical History Hx Anemia: No Hx Asthma: No Hx Chronic Obstructive Pulmonary Disease (COPD): No Hx Cancer: No Hx Cardiac Disorders: No Hx Congestive Heart Failure: No Hx Hypertension: No Hx Hypercholesterolemia: No Hx Pacemaker: No HX Cerebrovascular Accident: No Hx Seizures: Yes Hx Dementia: No Hx Diabetes: No Hx Gastrointestinal Disorders: No Hx Liver Disease: No Hx Genitourinary Disorders: No Hx Sexually Transmitted Disorders: No Hx Renal Disease (ESRD): No Hx Thyroid Disease: No Hx Human Immunodeficiency Virus (HIV): No Hx Hepatitis C: No Hx Depression: No Hx Suicide Attempt: No (Ptient denies suicidal ideation) Hx Bipolar Disorder: No Hx Schizophrenia: No - Patient Surgical History Past Surgical History: No Hx Neurologic Surgery: No Hx Cataract Extraction: No Hx Cardiac Surgery: No Hx Lung Surgery: No Hx Abdominal Surgery: No Hx Appendectomy: No Hx Cholecystectomy: No Hx Genitourinary Surgery: No Hx Orthopedic Surgery: No Anesthesia Reaction: No - PPD History Date: 12/11/16 Results: 0MM - Smoking Cessation Smoking history: Current every day smoker Have you smoked in the past 12 months: Yes Aproximately how many cigarettes per day: 20 Cigars Per Day: 0 Hx Chewing Tobacco Use: No Initiated information on smoking cessation: Yes 'Breaking Loose' booklet given: 02/20/17 - Substances Abused Heroin Route: Injection Frequency: Daily Amount used: 10 bags Age of first use: 25 Date of Last Use: 02/18/17 ETOH Route: Oral Frequency: Daily Amount used: pint cecile Age of first use: 12 Cocaine Route: Smoking Frequency: Daily Amount used: 2 bags Age of first use: 26 Date of Last Use: 02/17/17 Marijuana/Hashish Frequency: 3-6 times per week Amount used: 2 blunts Age of first use: 12 Date of Last Use: 02/17/17 Family Disease History - Family Disease History Family History: Denies Admission Physical Exam BHS - Vital Signs Vital Signs: Vital Signs - 24 hr 02/18/17 21:46 Temperature 96.8 F L Pulse Rate 70 Respiratory 18 Rate Blood Pressure 118/60 - Physical General Appearance: Yes: Moderate Distress, Tremorous, Irritable, Sweating, Anxious HEENTM: Yes: EOMI, Normal Voice, LINNETTE Respiratory: Yes: Lungs Clear, Normal Breath Sounds, No Respiratory Distress Neck: Yes: Supple, Other (tatoos to both sides of the neck) Breast: Yes: Breast Exam Deferred Cardiology: Yes: Regular Rhythm, Regular Rate, S1, S2 Abdominal: Yes: Normal Bowel Sounds, Soft Genitourinary: Yes: Within Normal Limits Back: Yes: Within Normal Limits Musculoskeletal: Yes: Back pain, Muscle Pain, Muscle weakness Extremities: Yes: Normal Inspection, Non-Tender, Other (tatoo to left hand) Neurological: Yes: Within Normal Limits, Alert, Normal Response Integumentary: Yes: Dry, Pale, Track Mcnulty (both arms) Lymphatic: Yes: Within Normal Limits - Diagnostic (1) Alcohol dependence with uncomplicated withdrawal Current Visit: Yes Status: Acute (2) Cannabis dependence, uncomplicated Current Visit: Yes Status: Chronic (3) Cocaine dependence, uncomplicated Current Visit: Yes Status: Acute (4) Nicotine dependence Current Visit: Yes Status: Acute Qualifiers: Nicotine product type: cigarettes Substance use status: in withdrawal Qualified Code(s): F17.213 - Nicotine dependence, cigarettes, with withdrawal (5) Opioid dependence with withdrawal Current Visit: Yes Status: Acute Cleared for Admission [facility] - Detox or Rehab [facility] Level of Care: Medically Managed Detox Regimen/Protocol: Methadone/Librium [facility] Breath Alcohol Content Breath Alcohol Content: 0 Urine Drug Screen - Results Drug Screen Negative: No Urine Drug Screen Results: THC-Marijuana, BUDDY-Cocaine, OPI-Opiates, BZO- Benzodiazepines
[2017-02-18] MEDS ORDERED: METHADONE HCL 10 MG TABLET (FOR DETOX USE ONLY) PO ONE ×2 (23:00→23:12)
[2017-02-18] MEDS ORDERED: ACETAMINOPHEN 325 MG TABLET (FP) PO PRN (23:12)
[2017-02-18] MEDS ORDERED: MENTHOL/PHENOL 1 EACH UD MM PRN (23:12)
[2017-02-18] MEDS ORDERED: IBUPROFEN 400 MG TABLET (FP) PO PRN (23:12)
[2017-02-18] MEDS ORDERED: MAG HYDROX/AL HYDROX/SIMETH 30 ML UNIT-DOSE CUP PO PRN (23:12)
[2017-02-18] MEDS ORDERED: MAGNESIUM CITRATE 300 ML BOTTLE PO PRN (23:12)
[2017-02-18] MEDS ORDERED: guaiFENesin/D-METHORPHAN HB 10 ML UNIT-DOSE CUPS PO PRN (23:12)
[2017-02-18] MEDS ORDERED: LOPERAMIDE HCL 2 MG CAPSULE PO PRN (23:12)
[2017-02-18] MEDS ORDERED: P-EPHED 60MG/TRIPROLIDI 2.5MG TABLET PO PRN (23:12)
[2017-02-18] MEDS ORDERED: MAGNESIUM HYDROX 2400MG/30ML ORAL SUSPENSION 30 ML CUP PO PRN (23:12)
[2017-02-18] MEDS ORDERED: hydrOXYzine PAMOATE 50 MG CAPSULE (FP) PO PRN (23:12)
[2017-02-18] MEDS ORDERED: chlordiazePOXIDE HCL 25 MG CAPSULE PO PRN (23:12)
[2017-02-18] MEDS: chlordiazePOXIDE HCL 25 MG CAPSULE PO SCH (23:43)
[2017-02-19 00:20] LABS: URINE APPEARANCE CLEAR; URINE BILIRUBIN NEGATIVE (NEGATIVE); URINE BLOOD NEGATIVE (NEGATIVE); URINE COLOR YELLOW; URINE GLUCOSE (UA) NEGATIVE (NEGATIVE); URINE KETONE NEGATIVE (NEGATIVE); URINE NITRITE NEGATIVE (NEGATIVE); URINE PROTEIN NEGATIVE (NEGATIVE); URINE UROBILINOGEN NEGATIVE mg/dL (0.2-1.0)
[2017-02-19] MEDS: chlordiazePOXIDE HCL 25 MG CAPSULE PO SCH ×4 (06:26→22:14)
[2017-02-19 09:56] LABS: MCH 26.8 pg (25.7-33.7); MCHC 32.4 g/dl (32.0-35.9); MEAN CELL VOLUME 82.7 fl (80-96); MEAN PLT VOLUME 8.7 fl (7.5-11.1); PLATELET COUNT 249 K/MM3 (134-434); RDW 15.4 % (11.9-15.9); WHITE BLOOD COUNT 8.6 K/mm3 (4.0-10.0)
[2017-02-19] MEDS ORDERED: NICOTINE 14 MG/24 HOURS TOPICAL PATCH TD SCH (10:00)
[2017-02-19] MEDS ORDERED: PRENATAL VITAMINS W/ FOLIC ACID TABLET (FP) PO SCH (10:00)
[2017-02-19] MEDS ORDERED: METHADONE HCL 10 MG TABLET (FOR DETOX USE ONLY) PO SCH (10:00)
[2017-02-19 10:04] LABS: ALBUMIN 3.3 g/dl (3.4-5.0); ANION GAP 5 (8-16); BILIRUBIN,TOTAL 0.3 mg/dL (0.2-1.0); CALCIUM 8.1 mg/dL (8.5-10.1); CO2 29 mmol/L (21-32); CREATININE 0.9 mg/dL (0.7-1.3); GLUCOSE,RANDOM 88 mg/dL (74-106); SGOT/AST 20 U/L (15-37); SGPT/ALT 26 U/L (12-78); TOT PROT 6.8 g/dl (6.4-8.2)
[2017-02-19 10:05] LABS: ALK PHOS 74 U/L (45-117)
--- NOTE | 2017-02-19 10:35 | PN ---
[facility] CIWA - CIWA Score Nausea/Vomitin-Mild Nausea/No Vomiting Muscle Tremors: 4-Moderate,w/Arms Extend Anxiety: 4-Mod. Anxious/Guarded Agitation: 4-Moderately Restless Paroxysmal Sweats: 1-Minimal Palms Moist Orientation: 0-Oriented Tacttile Disturbances: 3-Moderate Itch/Numb/Burn Auditory Disturbances: 0-None Visual Disturbances: 0-None Headache: 0-None Present CIWA-Ar Total Score: 17 S COWS - Scale Resting Pulse: 0= [place] 80 or Below Sweatin= Chills/Flushing Restless Observation: 3= Extraneous Movement Pupil Size: 2= Moderately Dilated Bone or Joint Aches: 4=Acute Joint/Muscle Pain Runny Nose/ Eye Tearin= Nasal Congestion GI Upset > 30mins: 1= Stomach Cramp Tremor Observation of Outstretched Hands: 1= Tremor [place], Not Seen Yawning Observation: 1= 1-2x During Session Anxiety or Irritability: 2=Irritable/Anxious Goose Flesh Skin: 0=Smooth Skin COWS Score: 16 S Progress Note (SOAP) Subjective: ANXIETY,IRRITABILITY,SWEATS,TREMORS, BACK PAIN,INTERMITTENT SLEEP-AMBIEN IN THE PAST FOR INSOMNIA. Objective: 02/19/17 10:34 Vital Signs Temperature 97.7 F 02/19/17 09:07 Pulse Rate 60 02/19/17 09:07 Respiratory Rate 18 02/19/17 09:07 Blood Pressure 125/76 02/19/17 09:07 O2 Sat by Pulse Oximetry (%) Laboratory Last Values WBC 8.6 K/mm3 (4.0-10.0) 02/19/17 07:00 RBC 4.33 M/mm3 (4.00-5.60) 02/19/17 07:00 Hgb 11.6 GM/dL (11.7-16.9) L 02/19/17 07:00 Hct 35.8 % (35.4-49) 02/19/17 07:00 MCV 82.7 fl (80-96) 02/19/17 07:00 MCH 26.8 pg (25.7-33.7) 02/19/17 07:00 MCHC 32.4 g/dl (32.0-35.9) 02/19/17 07:00 RDW 15.4 % (11.9-15.9) 02/19/17 07:00 Plt Count 249 K/MM3 (134-434) 02/19/17 07:00 MPV 8.7 fl (7.5-11.1) 02/19/17 07:00 Sodium 141 mmol/L (136-145) 02/19/17 07:00 Potassium 4.2 mmol/L (3.5-5.1) 02/19/17 07:00 Chloride 107 mmol/L (98-107) 02/19/17 07:00 Carbon Dioxide 29 mmol/L (21-32) 02/19/17 07:00 Anion Gap 5 (8-16) L 02/19/17 07:00 BUN 19 mg/dL (7-18) H D 02/19/17 07:00 Creatinine 0.9 mg/dL (0.7-1.3) D 02/19/17 07:00 Creat Clearance w eGFR > 60 (>60) 02/19/17 07:00 Random Glucose 88 mg/dL (74-106) 02/19/17 07:00 Calcium 8.1 mg/dL (8.5-10.1) L 02/19/17 07:00 Total Bilirubin 0.3 mg/dL (0.2-1.0) D 02/19/17 07:00 AST 20 U/L (15-37) 02/19/17 07:00 ALT 26 U/L (12-78) 02/19/17 07:00 Alkaline Phosphatase 74 U/L (45-117) 02/19/17 07:00 Total Protein 6.8 g/dl (6.4-8.2) 02/19/17 07:00 Albumin 3.3 g/dl (3.4-5.0) L 02/19/17 07:00 Urine Color Yellow 02/18/17 23:27 Urine Appearance Clear 02/18/17 23: Urine pH 6.0 (5.0-8.0) D 02/18/17 23:27 Ur Specific [place] 1.023 (1.001-1.035) 02/18/17 23:27 Urine Protein Negative (NEGATIVE) 02/18/17 23: Urine Glucose (UA) Negative (NEGATIVE) 02/18/17 23: Urine Ketones Negative (NEGATIVE) 02/18/17 23:27 Urine Blood Negative (NEGATIVE) 02/18/17 23:27 Urine Nitrite Negative (NEGATIVE) 02/18/17 23:27 Urine Bilirubin Negative (NEGATIVE) 02/18/17 23:27 Urine Urobilinogen Negative mg/dL (0.2-1.0) 02/18/17 23:27 Assessment: 02/19/17 10:34 WITHDRAWAL SX Plan: CONTINUE DETOX AMBIEN 10 MG PO HS X 3 DAYS. INCREASE PO FLUIDS.
[2017-02-19 11:19] LABS: URINE LEUK ESTERASE Negative (NEGATIVE)
[2017-02-19] MEDS ORDERED: PNEUMOC 13-VAL CONJ-DIP CRM/PF 0.5 ML DISP.SYRIN IM ONE ×2 (12:00)
[2017-02-19] MEDS ORDERED: FLU VACCINE QUAD 60 MCG/0.5 ML (MDV 17-18) IM ONE (12:00)
[2017-02-19 12:32] LABS: HIV 1 & 2 AB NEGATIVE; HIV 1 AGp24 NEGATIVE
--- NOTE | 2017-02-19 13:08 | EKG ---
Test Reason : Blood Pressure : / mmHG Vent. Rate : 060 BPM Atrial Rate : 060 BPM P-R Int : 128 ms QRS Dur : 088 ms QT Int : 414 ms P-R-T Axes : 054 039 037 degrees QTc Int : 414 ms NORMAL SINUS RHYTHM NORMAL ECG WHEN COMPARED WITH ECG OF 19-FEB-2017 00:47, NO SIGNIFICANT CHANGE WAS FOUND Confirmed by DIANNE LINDER MD ([id number]) on 02/19/2017 1:08:01 PM Referred By: MARIA C MARTINEZ Confirmed By:DIANNE LINDER MD
--- NOTE | 2017-02-19 13:08 | EKG ---
Test Reason : Blood Pressure : / mmHG Vent. Rate : 051 BPM Atrial Rate : 051 BPM P-R Int : 122 ms QRS Dur : 090 ms QT Int : 448 ms P-R-T Axes : 055 041 038 degrees QTc Int : 412 ms SINUS BRADYCARDIA OTHERWISE NORMAL ECG WHEN COMPARED WITH ECG OF 10-DEC-2016 09:21, NO SIGNIFICANT CHANGE WAS FOUND Confirmed by DIANNE LINDER MD ([id number]) on 02/19/2017 1:07:38 PM Referred By: MARIA C MARTINEZ Confirmed By:DIANNE LINDER MD
[2017-02-19] MEDS: NICOTINE POLACRILEX 2 MG GUM BC PRN ×2 (17:19→22:26)
[2017-02-19] MEDS ORDERED: ZOLPIDEM TARTRATE 10 MG TABLET (PARK CARE ONLY) PO PRN (22:00)
[2017-02-19] MEDS ORDERED: THIAMINE HCL 100 MG TABLET (FP) PO SCH (22:00)
[2017-02-20 06:04] VITALS: BP 104/68; PULSE 44; TEMP 97.1
[2017-02-20] MEDS: chlordiazePOXIDE HCL 25 MG CAPSULE PO SCH (06:18)
--- NOTE | 2017-02-20 09:01 | DS ---
[facility] Detox Discharge Summary Admission Date: 02/18/17 Discharge Date: 02/20/17 - History Present History: Alcohol Dependence, Cannabis Dependence, Cocaine Dependence, Opioid Dependence Additional Comments: PT DECLINED TO CONTINUE WITH DETOX STATING ' I HAVE TO GO FOR MY MOTHER'S BIRTHDAY. I'M SORRY". ALERT O X 3. NAD. PT TO FOLLOW UP WITH PCP AT [facility] FOR MEDICAL MANAGEMENT NEEDED. Pertinent Past History: WEIGHT LOSS INSOMNIA - Physical Exam Results Vital Signs: Vital Signs Temperature 97.1 F L 02/20/17 06:03 Pulse Rate 44 L 02/20/17 06:03 Respiratory Rate 16 02/20/17 06:03 Blood Pressure 104/68 02/20/17 06:03 O2 Sat by Pulse Oximetry (%) Pertinent Admission Physical Exam Findings: WITHDRAWAL SX Laboratory Last Values WBC 8.6 K/mm3 (4.0-10.0) 02/19/17 07:00 RBC 4.33 M/mm3 (4.00-5.60) 02/19/17 07:00 Hgb 11.6 GM/dL (11.7-16.9) L 02/19/17 07:00 Hct 35.8 % (35.4-49) 02/19/17 07:00 MCV 82.7 fl (80-96) 02/19/17 07:00 MCH 26.8 pg (25.7-33.7) 02/19/17 07:00 MCHC 32.4 g/dl (32.0-35.9) 02/19/17 07:00 RDW 15.4 % (11.9-15.9) 02/19/17 07:00 Plt Count 249 K/MM3 (134-434) 02/19/17 07:00 MPV 8.7 fl (7.5-11.1) 02/19/17 07:00 Sodium 141 mmol/L (136-145) 02/19/17 07:00 Potassium 4.2 mmol/L (3.5-5.1) 02/19/17 07:00 Chloride 107 mmol/L (98-107) 02/19/17 07:00 Carbon Dioxide 29 mmol/L (21-32) 02/19/17 07:00 Anion Gap 5 (8-16) L 02/19/17 07:00 BUN 19 mg/dL (7-18) H D 02/19/17 07:00 Creatinine 0.9 mg/dL (0.7-1.3) D 02/19/17 07:00 Creat Clearance w eGFR > 60 (>60) 02/19/17 07:00 Random Glucose 88 mg/dL (74-106) 02/19/17 07:00 Calcium 8.1 mg/dL (8.5-10.1) L 02/19/17 07:00 Total Bilirubin 0.3 mg/dL (0.2-1.0) D 02/19/17 07:00 AST 20 U/L (15-37) 02/19/17 07:00 ALT 26 U/L (12-78) 02/19/17 07:00 Alkaline Phosphatase 74 U/L (45-117) 02/19/17 07:00 Total Protein 6.8 g/dl (6.4-8.2) 02/19/17 07:00 Albumin 3.3 g/dl (3.4-5.0) L 02/19/17 07:00 Urine Color Yellow 02/18/17 23:27 Urine Appearance Clear 02/18/17 23:27 Urine pH 6.0 (5.0-8.0) D 02/18/17 23:27 Ur Specific [place] 1.023 (1.001-1.035) 02/18/17 23:27 Urine Protein Negative (NEGATIVE) 02/18/17 23:27 Urine Glucose (UA) Negative (NEGATIVE) 02/18/17 23:27 Urine Ketones Negative (NEGATIVE) 02/18/17 23: Urine Blood Negative (NEGATIVE) 02/18/17 23:27 Urine Nitrite Negative (NEGATIVE) 02/18/17 23: Urine Bilirubin Negative (NEGATIVE) 02/18/17 23: Urine Urobilinogen Negative mg/dL (0.2-1.0) 02/18/17 23:27 Ur Leukocyte Esterase Negative (NEGATIVE) 02/18/17 23: RPR Titer Nonreactive (NONREACTIVE) 02/19/17 07:00 Hepatitis C Antibody <0.1 s/co ratio (0.0-0.9) 02/19/17 07:00 HIV 1&2 Antibody Screen Negative 02/19/17 07:00 HIV P24 Antigen Negative 02/19/17 07:00 - Treatment Hospital Course: Discharged Condition Good, Rehab Referral Accepted Patient has Accepted a Rehab Referral to: [facility] - Medication Discharge Medications: Ambulatory Orders NK [No Known Home Medication] 12/12/13 - Diagnosis (1) Alcohol dependence with uncomplicated withdrawal Status: Acute (2) Cocaine dependence, uncomplicated Status: Acute (3) Nicotine dependence Status: Acute Qualifiers: Nicotine product type: cigarettes Substance use status: in withdrawal Qualified Code(s): F17.213 - Nicotine dependence, cigarettes, with withdrawal (4) Opioid dependence with withdrawal Status: Acute (5) Weight loss Status: Chronic (6) Insomnia Status: Chronic Qualifiers: Insomnia type: alcohol-induced Qualified Code(s): F10.982 - Alcohol use, unspecified with alcohol-induced sleep disorder (7) Substance-induced sleep disorder Status: Chronic (8) Cannabis dependence, uncomplicated Status: Chronic - AMA Did Patient Leave Against Medical Advice: Yes (AMA)
[2017-02-20] MEDS ORDERED: METHADONE HCL 5 MG TABLET (FOR DETOX USE ONLY) PO SCH (10:00)
[2017-02-20] MEDS ORDERED: chlordiazePOXIDE 5 MG CAPSULE PO SCH (23:00)
[2017-02-21] MEDS ORDERED: chlordiazePOXIDE HCL 10 MG CAPSULE PO SCH (23:00)
[2017-02-22] MEDS ORDERED: METHADONE HCL 10 MG TABLET (FOR DETOX USE ONLY) PO SCH (10:00)
[2017-02-23] MEDS ORDERED: METHADONE HCL 5 MG TABLET (FOR DETOX USE ONLY) PO SCH (06:00)
== END 2017-02-20 08:42 | disposition left against medical advice (07) | DRG 770 ==
LOC: YASAS 20:54 → Y3N 22:45
PROVIDERS: ADMIT Internal Medicine; ATTEND Internal Medicine
PROC: HZ2ZZZZ Detoxification Services for Substance Abuse Treatment (ICD-10-PCS; principal; 2017-02-18)
DX: F11.23 Opioid dependence with withdrawal (principal); F10.230 Alcohol dependence with withdrawal, uncomplicated; F14.20 Cocaine dependence, uncomplicated; F12.20 Cannabis dependence, uncomplicated; F17.210 Nicotine dependence, cigarettes, uncomplicated; F19.282 Other psychoactive substance dependence with psychoactive substance-induced sleep disorder; R63.4 Abnormal weight loss; Z68.20 Body mass index [BMI] 20.0-20.9, adult; Z86.69 Personal history of other diseases of the nervous system and sense organs
CPT/HCPCS: 36415; 80053; 81003; 85027; 86593; 86803; 87389; 90670; 90688; 93005; 93010; G0008; G0009

== ENCOUNTER 2017-04-07 15:21 | Inpatient (IN) | payer OTHER ==
[2017-04-07 19:28] VITALS: BMI 21.9
--- NOTE | 2017-04-07 22:43 | HP ---
COWS - Scale Resting Pulse: 0= [place] 80 or Below Sweatin=Flushed/Facial Moisture Restless Observation: 1= Difficult to Sit Still Pupil Size: 1= Pupils >than Normal Bone or Joint Aches: 2= Severe Diffuse Aches Runny Nose/ Eye Tearin= Runny Nose/Eyes GI Upset > 30mins: 3= Vomiting/Diarrhea (vomiting x 5, diarrhea x 7) Tremor Observation: 2= Slight Tremor Visible Yawning Observation: 1= 1-2x During Session Anxiety or Irritability: 2=Irritable/Anxious Goose Flesh Skin: 3=Piloerection COWS Score: 19 CIWA Score - CIWA Score Nausea/Vomitin (vomiting x 5) Muscle Tremors: 4-Moderate,w/Arms Extend Anxiety: 4-Mod. Anxious/Guarded Agitation: 3 Paroxysmal Sweats: 3 Orientation: 0-Oriented Tacttile Disturbances: 0-None Auditory Disturbances: 0-None Visual Disturbances: 0-None Headache: 3-Moderate CIWA-Ar Total Score: 20 Admission ROS [facility] - HPI Chief Complaint: Opioid and alcohol withdrawal symptoms Allergies/Adverse Reactions: Allergies Allergy/AdvReac Type Severity Reaction Status Date / Time No Known Allergies Allergy Verified 04/07/17 20:10 History of Present Illness: 32 years old male with a long history of heroin and alcohol dependence is seeking admission to detox. Patient has been in previous detox and has left [facility] in the last 3 admissions. Risks and consequences of patient's actions reinforced. He reports insignificant period of sobriety. He has medical history of seizure and denies suicidal ideation at this time. Exam Limitations: No Limitations - Ebola screening Have you traveled outside of the country in the last 21 days: No Have you had contact with anyone from an Ebola affected area: No Have you been sick,other than usual withdrawal symptoms: No Do you have a fever: No - Review of Systems Constitutional: Loss of Appetite, Malaise, Night Sweats, Changes in sleep, Weakness EENT: reports: No Symptoms Reported Respiratory: reports: No Symptoms reported Cardiac: reports: No Symptoms Reported GI: reports: Diarrhea, Poor Appetite, Poor Fluid Intake, Vomiting, Abdominal cramping : reports: No Symptoms Reported Musculoskeletal: reports: Back Pain, Joint Pain, Muscle Pain, Muscle Weakness Integumentary: reports: Flushing Neuro: reports: Headache, Tingling, Tremors Endocrine: reports: No Symptoms Reported Hematology: reports: No Symptoms Reported Psychiatric: reports: Orientated x3, Agitated, Anxious Other Systems: Reviewed and Negative Patient History - Patient Medical History Hx Anemia: No Hx Asthma: No Hx Chronic Obstructive Pulmonary Disease (COPD): No Hx Cancer: No Hx Cardiac Disorders: No Hx Congestive Heart Failure: No Hx Hypertension: No Hx Hypercholesterolemia: No Hx Pacemaker: No HX Cerebrovascular Accident: No Hx Seizures: Yes Hx Dementia: No Hx Diabetes: No Hx Gastrointestinal Disorders: No Hx Liver Disease: No Hx Genitourinary Disorders: No Hx Sexually Transmitted Disorders: No Hx Renal Disease (ESRD): No Hx Thyroid Disease: No Hx Human Immunodeficiency Virus (HIV): No Hx Hepatitis C: No Hx Depression: Yes Hx Suicide Attempt: No (Patient denies suicidal ideation at this time) Hx Bipolar Disorder: No Hx Schizophrenia: No - Patient Surgical History Past Surgical History: No Hx Neurologic Surgery: No Hx Cataract Extraction: No Hx Cardiac Surgery: No Hx Lung Surgery: No Hx Breast Surgery: No Hx Breast Biopsy: No Hx Abdominal Surgery: No Hx Appendectomy: No Hx Cholecystectomy: No Hx Genitourinary Surgery: No Hx Section: No Hx Orthopedic Surgery: No Anesthesia Reaction: No - PPD History Previous Implant?: Yes Documented Results: Negative w/proof Implanted On Prior [facility] Admission?: Yes Date: 12/11/16 Results: 0MM PPD to be Administered?: No - Reproductive History Patient is a Female of Child Bearing Age (11 -55 yrs old): No (Male) - Smoking Cessation Smoking history: Current every day smoker Have you smoked in the past 12 months: Yes Aproximately how many cigarettes per day: 20 Cigars Per Day: 0 Hx Chewing Tobacco Use: No Initiated information on smoking cessation: Yes 'Breaking Loose' booklet given: 04/07/17 - Substance & Tx. History Hx Alcohol Use: Yes Hx Substance Use: Yes Substance Use Type: Alcohol, Cocaine, Heroin Hx Substance Use Treatment: Yes ([facility]) - Substances Abused Alcohol Route: Oral Frequency: Daily Amount used: LIQUOR- 1 PINT Age of first use: 12 Date of Last Use: 04/06/17 Heroin Route: Injection Frequency: Daily Amount used: 10 BAGS Age of first use: 26 Date of Last Use: 04/07/17 Cocaine Route: Injection Frequency: Daily Amount used: 1 BAGS Age of first use: 26 Date of Last Use: 04/07/17 Family Disease History - Family Disease History Family Disease History: Other: Father (Alcoholic) Admission Physical Exam [facility] - Vital Signs Vital Signs: Vital Signs - 24 hr 04/07/17 19:25 Temperature 96.8 F L Pulse Rate 69 Respiratory 20 Rate Blood Pressure 125/83 - Physical General Appearance: Yes: Moderate Distress HEENTM: Yes: EOMI, Normal Voice, LINNETTE Respiratory: Yes: Lungs Clear, Normal Breath Sounds, No Respiratory Distress Neck: Yes: Supple Breast: Yes: Breast Exam Deferred Cardiology: Yes: Regular Rhythm, Regular Rate, S1, S2 Abdominal: Yes: Normal Bowel Sounds, Soft Genitourinary: Yes: Within Normal Limits Back: Yes: Within Normal Limits Musculoskeletal: Yes: Within Normal Limits, Muscle Pain, Muscle weakness Extremities: Yes: Tremors Neurological: Yes: Within Normal Limits, Alert, Normal Response Integumentary: Yes: Dry Lymphatic: Yes: Within Normal Limits - Diagnostic (1) Seizures Current Visit: Yes Status: Chronic (2) Depression Current Visit: Yes Status: Chronic (3) Alcohol dependence with uncomplicated withdrawal Current Visit: No Status: Chronic (4) Cocaine dependence, uncomplicated Current Visit: No Status: Chronic (5) Nicotine dependence Current Visit: No Status: Chronic Qualifiers: Nicotine product type: cigarettes Substance use status: in withdrawal Qualified Code(s): F17.213 - Nicotine dependence, cigarettes, with withdrawal (6) Opioid dependence with withdrawal Current Visit: No Status: Chronic Cleared for Admission [facility] - Detox or Rehab [facility] Level of Care: Medically Managed Detox Regimen/Protocol: Methadone/Librium [facility] Breath Alcohol Content Breath Alcohol Content: 0 Urine Drug Screen - Results Drug Screen Negative: No Urine Drug Screen Results: BUDDY-Cocaine, OPI-Opiates
[2017-04-07] MEDS ORDERED: NICOTINE POLACRILEX 2 MG GUM BC PRN (22:51)
[2017-04-07] MEDS ORDERED: ACETAMINOPHEN 325 MG TABLET (FP) PO PRN (22:51)
[2017-04-07] MEDS ORDERED: LOPERAMIDE HCL 2 MG CAPSULE PO PRN (22:51)
[2017-04-07] MEDS ORDERED: MAGNESIUM HYDROX 2400MG/30ML ORAL SUSPENSION 30 ML CUP PO PRN (22:51)
[2017-04-07] MEDS ORDERED: P-EPHED 60MG/TRIPROLIDI 2.5MG TABLET PO PRN (22:51)
[2017-04-07] MEDS ORDERED: IBUPROFEN 400 MG TABLET (FP) PO PRN (22:51)
[2017-04-07] MEDS ORDERED: chlordiazePOXIDE HCL 25 MG CAPSULE PO PRN (22:51)
[2017-04-07] MEDS ORDERED: MAGNESIUM CITRATE 300 ML BOTTLE PO PRN (22:51)
[2017-04-07] MEDS ORDERED: MAG HYDROX/AL HYDROX/SIMETH 30 ML UNIT-DOSE CUP PO PRN (22:51)
[2017-04-07] MEDS ORDERED: MENTHOL/PHENOL 1 EACH UD MM PRN (22:51)
[2017-04-07] MEDS ORDERED: METHADONE HCL 10 MG TABLET (FOR DETOX USE ONLY) PO ONE ×2 (22:51→23:00)
[2017-04-07] MEDS ORDERED: guaiFENesin/D-METHORPHAN HB 10 ML UNIT-DOSE CUPS PO PRN (22:51)
[2017-04-07] MEDS ORDERED: chlordiazePOXIDE HCL 25 MG CAPSULE PO SCH (23:00)
[2017-04-08] MEDS ORDERED: chlordiazePOXIDE HCL 25 MG CAPSULE PO PRN (00:55)
[2017-04-08] MEDS ORDERED: METHADONE HCL 10 MG TABLET (FOR DETOX USE ONLY) PO ONE ×3 (00:55→22:00)
[2017-04-08] MEDS: chlordiazePOXIDE HCL 25 MG CAPSULE PO SCH ×4 (05:54→22:11)
[2017-04-08] MEDS ORDERED: PRENATAL VITAMINS W/ FOLIC ACID TABLET (FP) PO SCH (10:00)
[2017-04-08] MEDS ORDERED: METHADONE HCL 10 MG TABLET (FOR DETOX USE ONLY) PO SCH (10:00)
[2017-04-08] MEDS ORDERED: NICOTINE 14 MG/24 HOURS TOPICAL PATCH TD SCH (10:00)
[2017-04-08] MEDS ORDERED: TRIMETHOBENZAMIDE HCL 200MG/2ML INJ IM PRN (10:04)
[2017-04-08 10:35] LABS: ALBUMIN 3.8 g/dl (3.4-5.0); ANION GAP 8 (8-16); CHLORIDE 103 mmol/L (98-107); CO2 27 mmol/L (21-32); POTASSIUM 4.2 mmol/L (3.5-5.1); SGPT/ALT 31 U/L (12-78); SODIUM 138 mmol/L (136-145)
[2017-04-08 10:36] LABS: HEMOGLOBIN 12.7 GM/dL (11.7-16.9); MCH 26.4 pg (25.7-33.7); MCHC 31.8 g/dl (32.0-35.9); MEAN CELL VOLUME 82.8 fl (80-96); MEAN PLT VOLUME 8.7 fl (7.5-11.1); PLATELET COUNT 284 K/MM3 (134-434); RBC 4.83 M/mm3 (4.00-5.60); RDW 15.4 % (11.9-15.9); WHITE BLOOD COUNT 8.2 K/mm3 (4.0-10.0)
[2017-04-08 10:42] LABS: ALK PHOS 83 U/L (45-117); BILIRUBIN,TOTAL 0.3 mg/dL (0.2-1.0); BLOOD UREA NITROGEN 12 mg/dL (7-18); CALCIUM 8.6 mg/dL (8.5-10.1); CREATININE 0.7 mg/dL (0.7-1.3); GLUCOSE,RANDOM 89 mg/dL (74-106); SGOT/AST 25 U/L (15-37); TOT PROT 7.5 g/dl (6.4-8.2)
--- NOTE | 2017-04-08 10:45 | EKG ---
Test Reason : Blood Pressure : / mmHG Vent. Rate : 063 BPM Atrial Rate : 063 BPM P-R Int : 122 ms QRS Dur : 088 ms QT Int : 406 ms P-R-T Axes : 055 044 048 degrees QTc Int : 415 ms NORMAL SINUS RHYTHM WITH SINUS ARRHYTHMIA NORMAL ECG WHEN COMPARED WITH ECG OF 19-FEB-2017 10:45, NO SIGNIFICANT CHANGE WAS FOUND Confirmed by RILEY LUNA, YOSELIN ([id number]) on 04/08/2017 10:44:55 AM Referred By: Confirmed By:YOSELIN LIN MD
[2017-04-08] MEDS ORDERED: cloNIDine HCL 0.1 MG TABLET PO ONE (11:59)
--- NOTE | 2017-04-08 12:06 | PN ---
[facility] CIWA - CIWA Score Nausea/Vomitin Muscle Tremors: 3 Anxiety: 5 Agitation: 4-Moderately Restless Paroxysmal Sweats: No Perspiration Orientation: 0-Oriented Tacttile Disturbances: 2-Mild Itch/Numbness/Burn Auditory Disturbances: 0-None Visual Disturbances: 0-None Headache: 0-None Present CIWA-Ar Total Score: 19 BHS COWS - Scale Resting Pulse: 1= [place] 81-100 Sweatin= No chills or Flushing Restless Observation: 1= Difficult to Sit Still Pupil Size: 0= Normal to Room Light Bone or Joint Aches: 2= Severe Diffuse Aches Runny Nose/ Eye Tearin= Nasal Congestion GI Upset > 30mins: 3= Vomiting/Diarrhea Tremor Observation of Outstretched Hands: 2= Slight Tremor Visible Yawning Observation: 0= None Anxiety or Irritability: 4=Extreme Anxiety Goose Flesh Skin: 3=Piloerection COWS Score: 17 BHS Progress Note (SOAP) Subjective: Vomiting, Body Aches, Anxious, Tremors, Interrupted Sleep, Stomach Cramping, Diarrhea. Objective: PT. A & O X 3, OBSERVED AMBULATING ON UNIT. NO ACUTE DISTRESS. 04/08/17 12:04 Vital Signs Temperature 97.3 F L 04/08/17 09:25 Pulse Rate 94 H 04/08/17 09:25 Respiratory Rate 18 04/08/17 09:25 Blood Pressure 151/95 04/08/17 09:25 O2 Sat by Pulse Oximetry (%) Laboratory Tests 04/08/17 04/08/17 04/08/17 07:00 07:00 08:15 WBC 8.2 RBC 4.83 Hgb 12.7 Hct 40.0 MCV 82.8 MCH 26.4 MCHC 31.8 L RDW 15.4 Plt Count 284 MPV 8.7 Sodium 138 Potassium 4.2 Chloride 103 Carbon Dioxide 27 Anion Gap 8 BUN 12 D Creatinine 0.7 D Creat Clearance w eGFR > 60 Random Glucose 89 Calcium 8.6 Total Bilirubin 0.3 AST 25 D ALT 31 Alkaline Phosphatase 83 Total Protein 7.5 Albumin 3.8 HIV 1&2 Antibody Screen Negative HIV P24 Antigen Negative LABS NOTED. RPR, HCV AB, UA RESULTS PENDING. 04/08/17 12:05 Assessment: 04/08/17 12:04 WITHDRAWAL SYMPTOMS. Plan: CONTINUE DETOX. INCREASE DAILY PO FLUID INTAKE. PRN TIGAN IM FOR NAUSEA / VOMITING. CLONIDINE, 0.1 MG PO X 1 FOR DETOX SYMPTOMS.
--- NOTE | 2017-04-08 16:59 | CONSULT ---
[facility] Psychiatric Consult - Data Date of interview: 04/08/17 Admission source: [facility] Identifying data: Pt. is a 32 year old male, single, without kids, and currently unemployed. This is one of multiple admissions for patient. Pt. admitted to for heroin, cocaine, and alcohol dependence. Substance Abuse History: Following information confirmed by Mr. Rojas: - Smoking Cessation. Smoking history: Current every day smoker. Have you smoked in the past 12 months: Yes. Aproximately how many cigarettes per day: 20. Cigars Per Day: 0. Hx Chewing Tobacco Use: No. Initiated information on smoking cessation: Yes. 'Breaking Loose' booklet given: 04/07/17. - Substance & Tx. History. Hx Alcohol Use: Yes. Hx Substance Use: Yes. Substance Use Type : Alcohol, Cocaine, Heroin. Hx Substance Use Treatment: Yes ([facility]). - Substances Abused. Alcohol. Route: Oral. Frequency: Daily. Amount used: LIQUOR- 1 PINT. Age of first use: 12. Date of Last Use: 04/06/17. Heroin. Route: Injection. Frequency: Daily. Amount used: 10 BAGS. Age of first use : 26. Date of Last Use: 04/07/17. Cocaine. Route: Injection. Frequency: Daily. Amount used: 1 BAGS. Age of first use: 26. Date of Last Use: 04/07/17 Medical History: Seizures. Psychiatric History: Pt denies h/o psychiatric hospitalizations, OPC, and suicide attempt. Physical/Sexual Abuse/Trauma History: Denies. Mental Status Exam - Mental Status Exam Alert and Oriented to: Time, Place, Person Cognitive Function: Good Patient Appearance: Unkempt Mood: Withdrawn Affect: Mood Congruent Patient Behavior: Fatigued Speech Pattern: Delayed Voice Loudness: Normal Thought Process: Goal Oriented Thought Disorder: Not Present Hallucinations: Denies Suicidal Ideation: Denies Homicidal Ideation: Denies Insight/Judgement: Poor Sleep: Poorly Appetite: Fair Muscle strength/Tone: Normal Gait/Station: Normal Psychiatric Findings - Problem List ([place] 1, 2,3) (1) Alcohol dependence with uncomplicated withdrawal Current Visit: Yes Status: Acute (2) Cocaine dependence, uncomplicated Current Visit: Yes Status: Acute (3) Opioid dependence with withdrawal Current Visit: Yes Status: Acute (4) Nicotine dependence Current Visit: Yes Status: Chronic Qualifiers: Nicotine product type: cigarettes Substance use status: in withdrawal Qualified Code(s): F17.213 - Nicotine dependence, cigarettes, with withdrawal (5) Insomnia Current Visit: Yes Status: Acute Qualifiers: Insomnia type: alcohol-induced Qualified Code(s): F10.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 Detoxification in progress. Seroquel 50mg qhs ordered. Pt. reports favorable effect from previously taking seroquel. Verbal consent given. Benefits and side effects discussed. Will continue to monitor.
[2017-04-08] MEDS ORDERED: QUEtiapine FUMARATE 50 MG TABLET PO SCH (22:00)
[2017-04-08] MEDS ORDERED: THIAMINE HCL 100 MG TABLET (FP) PO SCH (22:00)
[2017-04-08] MEDS ORDERED: chlordiazePOXIDE HCL 25 MG CAPSULE PO SCH (23:00)
[2017-04-09] MEDS ORDERED: chlordiazePOXIDE HCL 25 MG CAPSULE PO SCH (05:00)
[2017-04-09 09:15] VITALS: BP 133/93; PULSE 103; TEMP 97.8
[2017-04-09] MEDS ORDERED: METHADONE HCL 5 MG TABLET (FOR DETOX USE ONLY) PO SCH ×2 (10:00)
--- NOTE | 2017-04-09 12:02 | DS ---
[facility] Detox Discharge Summary Admission Date: 04/07/17 Discharge Date: 04/09/17 - History Present History: Alcohol Dependence, Cocaine Dependence, Opioid Dependence Additional Comments: PATIENT DOES NOT WISH TO STAY TO COMPLETE DETOX REGIMEN. RISKS OF LEAVING DETOX UNIT PRIOR TO COMPLETION OF DETOX REGIMEN EXPLAINED TO PATIENT. PATIENT ADVISED TO GO IMMEDIATELY TO NEAREST ER SHOULD ANY INTOLERABLE DETOX SYMPTOMS DEVELOP AT ANY TIME. PATIENT LEFT DETOX UNIT IN STABLE MEDICAL CONDITION. Pertinent Past History: Depression, Insomnia, History of Seizures, Nicotine Dependence. - Physical Exam Results Vital Signs: Vital Signs Temperature 97.8 F 04/09/17 09:15 Pulse Rate 103 H 04/09/17 09:15 Respiratory Rate 20 04/09/17 09:15 Blood Pressure 133/93 04/09/17 09:15 O2 Sat by Pulse Oximetry (%) Pertinent Admission Physical Exam Findings: WITHDRAWAL SYMPTOMS. Laboratory Tests 04/07/17 04/08/17 04/08/17 07:00 07:00 07:00 WBC 8.2 RBC 4.83 Hgb 12.7 Hct 40.0 MCV 82.8 MCH 26.4 MCHC 31.8 L RDW 15.4 Plt Count 284 MPV 8.7 Sodium 138 Potassium 4.2 Chloride 103 Carbon Dioxide 27 Anion Gap 8 BUN 12 D Creatinine 0.7 D Creat Clearance w eGFR > 60 Random Glucose 89 Calcium 8.6 Total Bilirubin 0.3 AST 25 D ALT 31 Alkaline Phosphatase 83 Total Protein 7.5 Albumin 3.8 RPR Titer Hepatitis C Antibody <0.1 HIV 1&2 Antibody Screen HIV P24 Antigen 04/08/17 04/08/17 07:00 08:15 WBC RBC Hgb Hct MCV MCH MCHC RDW Plt Count MPV Sodium Potassium Chloride Carbon Dioxide Anion Gap BUN Creatinine Creat Clearance w eGFR Random Glucose Calcium Total Bilirubin AST ALT Alkaline Phosphatase Total Protein Albumin RPR Titer Nonreactive Hepatitis C Antibody HIV 1&2 Antibody Screen Negative HIV P24 Antigen Negative LABS NOTED. - Treatment Hospital Course: Detoxed Safely - Medication Discharge Medications: Ambulatory Orders NK [No Known Home Medication] 12/12/13 - Diagnosis (1) Depression Status: Chronic Qualifiers: Depression Type: unspecified Qualified Code(s): F32.9 - Major depressive disorder, single episode, unspecified (2) Seizures Status: Chronic (3) Alcohol dependence with uncomplicated withdrawal Status: Acute (4) Cocaine dependence, uncomplicated Status: Acute (5) Nicotine dependence Status: Chronic Qualifiers: Nicotine product type: cigarettes Substance use status: in withdrawal Qualified Code(s): F17.213 - Nicotine dependence, cigarettes, with withdrawal (6) Opioid dependence with withdrawal Status: Acute (7) Insomnia Status: Acute Qualifiers: Insomnia type: alcohol-induced Qualified Code(s): F10.982 - Alcohol use, unspecified with alcohol-induced sleep disorder - AMA Did Patient Leave Against Medical Advice: Yes (PATIENT DOES NOT WISH TO STAY TO COMPLETE DETOX REGIMEN.)
[2017-04-09] MEDS ORDERED: chlordiazePOXIDE 5 MG CAPSULE PO SCH (23:00)
[2017-04-10] MEDS ORDERED: chlordiazePOXIDE 5 MG CAPSULE PO SCH (05:00)
[2017-04-10] MEDS ORDERED: METHADONE HCL 5 MG TABLET (FOR DETOX USE ONLY) PO SCH (10:00)
[2017-04-10] MEDS ORDERED: chlordiazePOXIDE HCL 10 MG CAPSULE PO SCH (23:00)
[2017-04-11] MEDS ORDERED: chlordiazePOXIDE HCL 10 MG CAPSULE PO SCH (05:00)
[2017-04-11] MEDS ORDERED: METHADONE HCL 10 MG TABLET (FOR DETOX USE ONLY) PO SCH (10:00)
[2017-04-12] MEDS ORDERED: METHADONE HCL 5 MG TABLET (FOR DETOX USE ONLY) PO SCH (06:00)
[2017-04-12] MEDS ORDERED: METHADONE HCL 10 MG TABLET (FOR DETOX USE ONLY) PO SCH (10:00)
[2017-04-13] MEDS ORDERED: METHADONE HCL 10 MG TABLET (FOR DETOX USE ONLY) PO SCH (06:00)
== END 2017-04-09 10:10 | disposition left against medical advice (07) | DRG 770 ==
LOC: YASAS 15:21 → Y3N 19:59
PROVIDERS: ADMIT Internal Medicine; ATTEND Internal Medicine
PROC: HZ2ZZZZ Detoxification Services for Substance Abuse Treatment (ICD-10-PCS; principal; 2017-04-07)
DX: F11.23 Opioid dependence with withdrawal (principal); F10.230 Alcohol dependence with withdrawal, uncomplicated; F10.282 Alcohol dependence with alcohol-induced sleep disorder; F14.20 Cocaine dependence, uncomplicated; F17.213 Nicotine dependence, cigarettes, with withdrawal; F32.9 Major depressive disorder, single episode, unspecified; G40.909 Epilepsy, unspecified, not intractable, without status epilepticus
CPT/HCPCS: 36415; 80053; 85027; 86593; 86803; 87389; 93005; 93010

== ENCOUNTER 2017-05-19 17:46 | Inpatient (IN) | payer OTHER ==
[2017-05-19 19:05] VITALS: BMI 22.1
--- NOTE | 2017-05-19 20:10 | HP ---
COWS - Scale Resting Pulse: 1= [place] 81-100 Sweatin=Flushed/Facial Moisture Restless Observation: 0= Sits Still Pupil Size: 1= Pupils >than Normal Bone or Joint Aches: 4=Acute Joint/Muscle Pain Runny Nose/ Eye Tearin= Runny Nose/Eyes GI Upset > 30mins: 3= Vomiting/Diarrhea (vomiting x 3, diarrhea x 3) Tremor Observation: 2= Slight Tremor Visible Yawning Observation: 1= 1-2x During Session Anxiety or Irritability: 2=Irritable/Anxious Goose Flesh Skin: 0=Smooth Skin COWS Score: 18 CIWA Score - CIWA Score Nausea/Vomitin Muscle Tremors: 4-Moderate,w/Arms Extend Anxiety: 4-Mod. Anxious/Guarded Agitation: 4-Moderately Restless Paroxysmal Sweats: 2 Orientation: 0-Oriented Tacttile Disturbances: 0-None Auditory Disturbances: 0-None Visual Disturbances: 0-None Headache: 2-Mild CIWA-Ar Total Score: 19 Admission ROS S - HPI Chief Complaint: Alcohol and opioid withdrawal symptoms Allergies/Adverse Reactions: Allergies Allergy/AdvReac Type Severity Reaction Status Date / Time No Known Allergies Allergy Verified 05/20/17 01:43 History of Present Illness: 32 years old male with a 6 years history of opioids and long history of alcohol dependence is seeking admission to detox. Patient has been in previous detox and reports insignificant period of sobriety. He has past medical history of seizures and depression. Denies suicidal ideation at this time. Exam Limitations: No Limitations - Ebola screening Have you traveled outside of the country in the last 21 days: No Have you had contact with anyone from an Ebola affected area: No Have you been sick,other than usual withdrawal symptoms: No Do you have a fever: No - Review of Systems Constitutional: Chills, Loss of Appetite, Malaise, Night Sweats, Changes in sleep EENT: reports: Nose Congestion, Sinus Pressure Respiratory: reports: No Symptoms reported Cardiac: reports: No Symptoms Reported GI: reports: Diarrhea, Nausea, Poor Appetite, Poor Fluid Intake, Vomiting, Abdominal cramping : reports: No Symptoms Reported Musculoskeletal: reports: Back Pain, Muscle Pain, Muscle Weakness Integumentary: reports: No Symptoms Reported Neuro: reports: Headache, Tingling, Tremors Endocrine: reports: No Symptoms Reported Hematology: reports: No Symptoms Reported Psychiatric: reports: Orientated x3, Agitated, Anxious Other Systems: Reviewed and Negative Patient History - Patient Medical History Hx Anemia: No Hx Asthma: No Hx Chronic Obstructive Pulmonary Disease (COPD): No Hx Cancer: No Hx Cardiac Disorders: No Hx Congestive Heart Failure: No Hx Hypertension: No Hx Hypercholesterolemia: No Hx Pacemaker: No HX Cerebrovascular Accident: No Hx Seizures: Yes (Not on medication) Hx Dementia: No Hx Diabetes: No Hx Gastrointestinal Disorders: No Hx Liver Disease: No Hx Genitourinary Disorders: No Hx Sexually Transmitted Disorders: No Hx Renal Disease (ESRD): No Hx Thyroid Disease: No Hx Human Immunodeficiency Virus (HIV): No Hx Hepatitis C: No Hx Depression: Yes (Not on medication) Hx Suicide Attempt: No (Patient denies suicidal ideation at this time) Hx Bipolar Disorder: No Hx Schizophrenia: No - Patient Surgical History Past Surgical History: No Hx Neurologic Surgery: No Hx Cataract Extraction: No Hx Cardiac Surgery: No Hx Lung Surgery: No Hx Abdominal Surgery: No Hx Appendectomy: No Hx Cholecystectomy: No Hx Genitourinary Surgery: No Hx Orthopedic Surgery: No Anesthesia Reaction: No - PPD History Documented Results: Negative w/proof Implanted On Prior [facility] Admission?: Yes Date: 12/11/16 Results: 0MM PPD to be Administered?: No - Reproductive History Patient is a Female of Child Bearing Age (11 -55 yrs old): No (MALE) - Smoking Cessation Smoking history: Current every day smoker Have you smoked in the past 12 months: Yes Aproximately how many cigarettes per day: 20 Cigars Per Day: 0 Hx Chewing Tobacco Use: No Initiated information on smoking cessation: Yes 'Breaking Loose' booklet given: 05/19/17 - Substances Abused Alcohol Route: Oral Frequency: Daily Amount used: Henessey- 1 bottle Age of first use: 12 Date of Last Use: 05/18/17 Cocaine Route: Injection Frequency: Daily Amount used: 3 bags Age of first use: 26 Date of Last Use: 05/19/17 Heroin Route: Injection Frequency: Daily Amount used: $200 Age of first use: 26 Date of Last Use: 05/19/17 Family Disease History - Family Disease History Family Disease History: Other: Father (Alcoholic) Admission Physical Exam [facility] - Vital Signs Vital Signs: Vital Signs - 24 hr 05/19/17 19:02 Temperature 97.6 F Pulse Rate 83 Respiratory 18 Rate Blood Pressure 107/63 - Physical General Appearance: Yes: Moderate Distress, Tremorous, Irritable, Sweating, Anxious HEENTM: Yes: EOMI, Normal ENT Inspection, Normal Voice, LINNETTE, Nasal Congestion Respiratory: Yes: Lungs Clear, Normal Breath Sounds, No Respiratory Distress Neck: Yes: Supple Breast: Yes: Breast Exam Deferred Cardiology: Yes: Regular Rhythm, Regular Rate, S1, S2 Abdominal: Yes: Normal Bowel Sounds, Soft Genitourinary: Yes: Within Normal Limits Back: Yes: Normal Inspection Musculoskeletal: Yes: Back pain, Muscle Pain, Muscle weakness Extremities: Yes: Tremors Neurological: Yes: Alert, Normal Mood/Affect Integumentary: Yes: Dry Lymphatic: Yes: Within Normal Limits - Diagnostic (1) Alcohol dependence with uncomplicated withdrawal Current Visit: Yes Status: Chronic (2) Cocaine dependence, uncomplicated Current Visit: Yes Status: Chronic (3) Opioid dependence with withdrawal Current Visit: Yes Status: Chronic (4) Cannabis dependence, uncomplicated Current Visit: Yes Status: Chronic (5) Depression Current Visit: Yes Status: Chronic Qualifiers: Depression Type: unspecified Qualified Code(s): F32.9 - Major depressive disorder, single episode, unspecified (6) Nicotine dependence Current Visit: Yes Status: Chronic Qualifiers: Nicotine product type: cigarettes Substance use status: in withdrawal Qualified Code(s): F17.213 - Nicotine dependence, cigarettes, with withdrawal (7) Seizures Current Visit: Yes Status: Chronic Cleared for Admission [facility] - Detox or Rehab [facility] Level of Care: Medically Managed Detox Regimen/Protocol: Methadone/Librium S Breath Alcohol Content Breath Alcohol Content: 0 Urine Drug Screen - Results Drug Screen Negative: No Urine Drug Screen Results: THC-Marijuana, BUDDY-Cocaine, OPI-Opiates, OXY- Oxycodone
[2017-05-19] MEDS ORDERED: MAG HYDROX/AL HYDROX/SIMETH 30 ML UNIT-DOSE CUP PO PRN (20:18)
[2017-05-19] MEDS ORDERED: diazePAM 5 MG TABLET PO ONE (20:18)
[2017-05-19] MEDS ORDERED: diazePAM 5 MG TABLET PO PRN (20:18)
[2017-05-19] MEDS ORDERED: guaiFENesin/D-METHORPHAN HB 10 ML UNIT-DOSE CUPS PO PRN (20:18)
[2017-05-19] MEDS ORDERED: MAGNESIUM HYDROX 2400MG/30ML ORAL SUSPENSION 30 ML CUP PO PRN (20:18)
[2017-05-19] MEDS ORDERED: ACETAMINOPHEN 325 MG TABLET (FP) PO PRN (20:18)
[2017-05-19] MEDS ORDERED: MAGNESIUM CITRATE 300 ML BOTTLE PO PRN (20:18)
[2017-05-19] MEDS ORDERED: METHADONE HCL 10 MG TABLET (FOR DETOX USE ONLY) PO ONE ×2 (20:18→23:00)
[2017-05-19] MEDS ORDERED: MENTHOL/PHENOL 1 EACH UD MM PRN (20:18)
[2017-05-19] MEDS ORDERED: NICOTINE POLACRILEX 2 MG GUM BC PRN (20:18)
[2017-05-19] MEDS ORDERED: P-EPHED 60MG/TRIPROLIDI 2.5MG TABLET PO PRN (20:18)
[2017-05-19] MEDS ORDERED: LOPERAMIDE HCL 2 MG CAPSULE PO PRN (20:18)
[2017-05-19] MEDS ORDERED: IBUPROFEN 400 MG TABLET (FP) PO PRN (20:18)
[2017-05-19] MEDS ORDERED: METHADONE HCL 10 MG TABLET (FOR DETOX USE ONLY) ONE (22:53)
[2017-05-19] MEDS: THIAMINE HCL 100 MG TABLET (FP) PO SCH (22:57)
[2017-05-19] MEDS: diazePAM 5 MG TABLET PO SCH (22:57)
[2017-05-20] MEDS: diazePAM 5 MG TABLET PO SCH ×3 (07:57→22:10)
[2017-05-20] MEDS ORDERED: TRIMETHOBENZAMIDE HCL 200MG/2ML INJ IM PRN (09:38)
[2017-05-20] MEDS ORDERED: PRENATAL VITAMINS W/ FOLIC ACID TABLET (FP) PO SCH (10:00)
[2017-05-20] MEDS ORDERED: METHADONE HCL 10 MG TABLET (FOR DETOX USE ONLY) PO SCH (10:00)
[2017-05-20] MEDS ORDERED: NICOTINE 14 MG/24 HOURS TOPICAL PATCH TD SCH (10:00)
[2017-05-20 10:16] LABS: HEMOGLOBIN 12.1 GM/dL (11.7-16.9); MCH 25.9 pg (25.7-33.7); MCHC 31.1 g/dl (32.0-35.9); MEAN CELL VOLUME 83.2 fl (80-96); MEAN PLT VOLUME 8.3 fl (7.5-11.1); PLATELET COUNT 253 K/MM3 (134-434); RBC 4.68 M/mm3 (4.00-5.60); RDW 14.8 % (11.9-15.9); WHITE BLOOD COUNT 7.8 K/mm3 (4.0-10.0)
[2017-05-20 10:29] LABS: ANION GAP 9 (8-16); BLOOD UREA NITROGEN 14 mg/dL (7-18); CHLORIDE 105 mmol/L (98-107); CO2 26 mmol/L (21-32); GLUCOSE,RANDOM 82 mg/dL (74-106); POTASSIUM 4.3 mmol/L (3.5-5.1); SGOT/AST 16 U/L (15-37); SGPT/ALT 18 U/L (12-78); SODIUM 140 mmol/L (136-145)
--- NOTE | 2017-05-20 10:31 | EKG ---
Test Reason : Blood Pressure : / mmHG Vent. Rate : 061 BPM Atrial Rate : 061 BPM P-R Int : 122 ms QRS Dur : 088 ms QT Int : 402 ms P-R-T Axes : 041 025 031 degrees QTc Int : 404 ms NORMAL SINUS RHYTHM NORMAL ECG WHEN COMPARED WITH ECG OF 08-APR-2017 02:22, NO SIGNIFICANT CHANGE WAS FOUND Confirmed by YOSELIN LIN MD ([id number]) on 05/20/2017 10:30:59 AM Referred By: Confirmed By:OYSELIN LIN MD
[2017-05-20 10:32] LABS: ALK PHOS 82 U/L (45-117); BILIRUBIN,TOTAL 0.1 mg/dL (0.2-1.0); CALCIUM 8.5 mg/dL (8.5-10.1); CREATININE 0.7 mg/dL (0.7-1.3); TOT PROT 6.5 g/dl (6.4-8.2)
--- NOTE | 2017-05-20 12:07 | CONSULT ---
[facility] Psychiatric Consult - Data Date of interview: 05/20/17 Admission source: [facility] Identifying data: Readmission to [facility] for this 32 y/o male seeking detox treatment on for alcohol,cocaine,heroin and cannabis dependence.Patient is single without children,domiciled and employed. Substance Abuse History: Confirmed by patient in this interview.Patient admits to daily consumption of alcohol and exposure to heroin + cocaine.Details in current [facility] report : Smoking history: Current every day smoker. Have you smoked in the past 12 months: Yes. Aproximately how many cigarettes per day: 20. Cigars Per Day: 0. Hx Chewing Tobacco Use: No. Initiated information on smoking cessation: Yes. 'Breaking Loose' booklet given: 05/19/17. - Substances Abused. Alcohol. Route: Oral. Frequency: Daily. Amount used: Henessey- 1 bottle. Age of first use: 12. Date of Last Use: 05/18/17. Cocaine. Route: Injection. Frequency: Daily. Amount used: 3 bags. Age of first use: 26. Date of Last Use: 05/19/17. Heroin. Route: Injection. Frequency: Daily. Amount used: $200. Age of first use: 26. Date of Last Use: 05/19/17 Medical History: Seizure disorder. Psychiatric History: Patient denies. Physical/Sexual Abuse/Trauma History: Patient denies. Additional Comment: Urine Drug Screen Results: THC-Marijuana, BUDDY-Cocaine, OPI- Opiates, OXY-Oxycodone.Noted. Mental Status Exam - Mental Status Exam Alert and Oriented to: Time, Place, Person Cognitive Function: Good Patient Appearance: Well Groomed Mood: Nervous, Withdrawn Affect: Mood Congruent Patient Behavior: Fatigued, Appropriate, Cooperative Speech Pattern: Clear, Appropriate Voice Loudness: Normal Thought Process: Intact, Goal Oriented Thought Disorder: Not Present Hallucinations: Denies Suicidal Ideation: Denies Homicidal Ideation: Denies Insight/Judgement: Poor Sleep: Poorly, Difficulty falling asleep Appetite: Good Muscle strength/Tone: Normal Gait/Station: Normal Psychiatric Findings - Problem List ([place] 1, 2,3) (1) Opioid dependence with withdrawal Current Visit: Yes Status: Acute (2) Alcohol dependence with uncomplicated withdrawal Current Visit: Yes Status: Acute (3) Cannabis dependence, uncomplicated Current Visit: Yes Status: Acute (4) Cocaine dependence, uncomplicated Current Visit: Yes Status: Acute (5) Nicotine dependence Current Visit: Yes Status: Acute Qualifiers: Nicotine product type: cigarettes Substance use status: in withdrawal Qualified Code(s): F17.213 - Nicotine dependence, cigarettes, with withdrawal (6) Insomnia Current Visit: Yes Status: Acute Qualifiers: Insomnia type: alcohol-induced Qualified Code(s): F10.982 - Alcohol use, unspecified with alcohol-induced sleep disorder - Initial Treatment Plan Initial Treatment Plan: Records reviewed.Sleep hygiene.Psychoeducation provided in this session.Ambien 10 mg po hs prn.Patient informed of risk of parasomnias ( sleep-walking).Mr Rojas agrees with this careplan.Observation.
--- NOTE | 2017-05-20 15:33 | PN ---
S CIWA - CIWA Score Nausea/Vomitin Muscle Tremors: 2 Anxiety: 4-Mod. Anxious/Guarded Agitation: 2 Paroxysmal Sweats: 3 Orientation: 0-Oriented Tacttile Disturbances: 3-Moderate Itch/Numb/Burn Auditory Disturbances: 0-None Visual Disturbances: 2-Mild Sensitivity Headache: 0-None Present CIWA-Ar Total Score: 19 BHS COWS - Scale Resting Pulse: 0= [place] 80 or Below Sweatin= Chills/Flushing Restless Observation: 1= Difficult to Sit Still Pupil Size: 0= Normal to Room Light Bone or Joint Aches: 2= Severe Diffuse Aches Runny Nose/ Eye Tearin= None GI Upset > 30mins: 2= Nausea/Diarrhea Tremor Observation of Outstretched Hands: 2= Slight Tremor Visible Yawning Observation: 1= 1-2x During Session Anxiety or Irritability: 2=Irritable/Anxious Goose Flesh Skin: 3=Piloerection COWS Score: 14 S Progress Note (SOAP) Subjective: Stomach Cramping, Nausea, Body aches, Diarrhea, Sweating, Anxious, Interrupted Sleep, Fatigue. Objective: PATIENT A & O X 3, OBSERVED AMBULATING ON UNIT. NO ACUTE DISTRESS. 05/20/17 15:33 Vital Signs Temperature 97.2 F L 05/20/17 13:35 Pulse Rate 73 05/20/17 13:35 Respiratory Rate 18 05/20/17 13:35 Blood Pressure 133/90 05/20/17 13:35 O2 Sat by Pulse Oximetry (%) Laboratory Tests 05/20/17 05/20/17 05/20/17 06:15 06:15 06:15 WBC 7.8 RBC 4.68 Hgb 12.1 Hct 39.0 MCV 83.2 MCH 25.9 MCHC 31.1 L RDW 14.8 Plt Count 253 MPV 8.3 Sodium 140 Potassium 4.3 Chloride 105 Carbon Dioxide 26 Anion Gap 9 BUN 14 Creatinine 0.7 Creat Clearance w eGFR > 60 Random Glucose 82 Calcium 8.5 Total Bilirubin 0.1 L D AST 16 D ALT 18 D Alkaline Phosphatase 82 Total Protein 6.5 Albumin 3.0 L D RPR Titer Nonreactive HIV 1&2 Antibody Screen HIV P24 Antigen 05/20/17 06:15 WBC RBC Hgb Hct MCV MCH MCHC RDW Plt Count MPV Sodium Potassium Chloride Carbon Dioxide Anion Gap BUN Creatinine Creat Clearance w eGFR Random Glucose Calcium Total Bilirubin AST ALT Alkaline Phosphatase Total Protein Albumin RPR Titer HIV 1&2 Antibody Screen Negative HIV P24 Antigen Negative LABS NOTED. UA RESULTS PENDING. 05/20/17 16:40 Assessment: 05/20/17 16:37 WITHDRAWAL SYMPTOMS. Plan: CONTINUE DETOX. INCREASE DAILY PO FLUID INTAKE. CLONIDINE, 0.1 MG PO X 1 FOR DETOX SYMPTOMS. TIGAN IM PRN FOR NAUSEA / VOMITING.
[2017-05-20] MEDS ORDERED: cloNIDine HCL 0.1 MG TABLET PO ONE (15:40)
[2017-05-20] MEDS ORDERED: LIDOCAINE 5% TOPICAL PATCH TP SCH (21:00)
[2017-05-20] MEDS ORDERED: ZOLPIDEM TARTRATE 10 MG TABLET (PARK CARE ONLY) PO PRN (22:00)
[2017-05-20] MEDS ORDERED: LIDOCAINE PATCH REMOVAL MC SCH (22:00)
[2017-05-20] MEDS: THIAMINE HCL 100 MG TABLET (FP) PO SCH (22:10)
[2017-05-21 06:38] VITALS: BP 127/83; PULSE 67; TEMP 97.3
[2017-05-21] MEDS ORDERED: METHADONE HCL 5 MG TABLET (FOR DETOX USE ONLY) PO SCH (10:00)
[2017-05-21] MEDS ORDERED: diazePAM 5 MG TABLET PO SCH (10:00)
--- NOTE | 2017-05-21 11:06 | DS ---
[facility] Detox Discharge Summary Admission Date: 05/19/17 Discharge Date: 05/21/17 - History Present History: Alcohol Dependence, Cannabis Dependence, Cocaine Dependence, Opioid Dependence Additional Comments: PATIENT DOES NOT WISH TO STAY TO COMPLETE DETOX REGIMEN. RISKS OF LEAVING DETOX UNIT AGAINST MEDICAL ADVICE AND PRIOR TO COMPLETION OF DETOX REGIMEN EXPLAINED TO PATIENT. PATIENT ADVISED TO GO IMMEDIATELY TO NEAREST ER SHOULD ANY INTOLERABLE DETOX SYMPTOMS DEVELOP AT ANY TIME. PATIENT LEFT DETOX UNIT IN STABLE MEDICAL CONDITION. Pertinent Past History: History of Seizures, Nicotine Dependence, Depression, Insomnia. - Physical Exam Results Vital Signs: Vital Signs Temperature 97.3 F L 05/21/17 06:37 Pulse Rate 67 05/21/17 06:37 Respiratory Rate 18 05/21/17 06:37 Blood Pressure 127/83 05/21/17 06:37 O2 Sat by Pulse Oximetry (%) Pertinent Admission Physical Exam Findings: WITHDRAWAL SYMPTOMS. Laboratory Tests 05/20/17 05/20/17 05/20/17 06:15 06:15 06:15 WBC 7.8 RBC 4.68 Hgb 12.1 Hct 39.0 MCV 83.2 MCH 25.9 MCHC 31.1 L RDW 14.8 Plt Count 253 MPV 8.3 Sodium 140 Potassium 4.3 Chloride 105 Carbon Dioxide 26 Anion Gap 9 BUN 14 Creatinine 0.7 Creat Clearance w eGFR > 60 Random Glucose 82 Calcium 8.5 Total Bilirubin 0.1 L D AST 16 D ALT 18 D Alkaline Phosphatase 82 Total Protein 6.5 Albumin 3.0 L D RPR Titer Nonreactive HIV 1&2 Antibody Screen HIV P24 Antigen 05/20/17 06:15 WBC RBC Hgb Hct MCV MCH MCHC RDW Plt Count MPV Sodium Potassium Chloride Carbon Dioxide Anion Gap BUN Creatinine Creat Clearance w eGFR Random Glucose Calcium Total Bilirubin AST ALT Alkaline Phosphatase Total Protein Albumin RPR Titer HIV 1&2 Antibody Screen Negative HIV P24 Antigen Negative LABS NOTED. - Treatment Hospital Course: Detoxed Safely - Medication Discharge Medications: Ambulatory Orders NK [No Known Home Medication] 12/12/13 - Diagnosis (1) Alcohol dependence with uncomplicated withdrawal Status: Acute (2) Cannabis dependence, uncomplicated Status: Acute (3) Cocaine dependence, uncomplicated Status: Acute (4) Nicotine dependence Status: Acute Qualifiers: Nicotine product type: cigarettes Substance use status: in withdrawal Qualified Code(s): F17.213 - Nicotine dependence, cigarettes, with withdrawal (5) Opioid dependence with withdrawal Status: Acute (6) Seizures Status: Chronic (7) Insomnia Status: Acute Qualifiers: Insomnia type: alcohol-induced Qualified Code(s): F10.982 - Alcohol use, unspecified with alcohol-induced sleep disorder (8) Depression Status: Chronic Qualifiers: Depression Type: unspecified Qualified Code(s): F32.9 - Major depressive disorder, single episode, unspecified - AMA Did Patient Leave Against Medical Advice: Yes (PATIENT DID NOT WISH TO STAY TO COMPLETE DETOX REGIMEN.)
[2017-05-21 14:43] LABS: URINE APPEARANCE CLEAR; URINE BILIRUBIN NEGATIVE (NEGATIVE); URINE BLOOD NEGATIVE (NEGATIVE); URINE COLOR STRAW; URINE GLUCOSE (UA) NEGATIVE (NEGATIVE); URINE KETONE NEGATIVE (NEGATIVE); URINE LEUK ESTERASE NEGATIVE (NEGATIVE); URINE NITRITE NEGATIVE (NEGATIVE); URINE PROTEIN NEGATIVE (NEGATIVE); URINE UROBILINOGEN NEGATIVE mg/dL (0.2-1.0)
[2017-05-23] MEDS ORDERED: METHADONE HCL 10 MG TABLET (FOR DETOX USE ONLY) PO SCH (10:00)
[2017-05-23] MEDS ORDERED: diazePAM 5 MG TABLET PO SCH (10:00)
[2017-05-24] MEDS ORDERED: METHADONE HCL 5 MG TABLET (FOR DETOX USE ONLY) PO SCH (06:00)
== END 2017-05-21 10:19 | disposition left against medical advice (07) | DRG 770 ==
LOC: YASAS 17:46 → Y3N 21:59
PROVIDERS: ADMIT Internal Medicine; ATTEND Internal Medicine
PROC: HZ2ZZZZ Detoxification Services for Substance Abuse Treatment (ICD-10-PCS; principal; 2017-05-19)
DX: F11.23 Opioid dependence with withdrawal (principal); F10.230 Alcohol dependence with withdrawal, uncomplicated; F10.282 Alcohol dependence with alcohol-induced sleep disorder; F14.20 Cocaine dependence, uncomplicated; F12.20 Cannabis dependence, uncomplicated; F17.213 Nicotine dependence, cigarettes, with withdrawal; F32.9 Major depressive disorder, single episode, unspecified; G40.909 Epilepsy, unspecified, not intractable, without status epilepticus
CPT/HCPCS: 36415; 80053; 81003; 85027; 86593; 87389; 93005; 93010; J0735

== ENCOUNTER 2018-09-12 18:03 | Inpatient (IN) | payer OTHER ==
--- NOTE | 2018-09-12 22:23 | HP ---
CIWA Score Nausea/Vomitin Muscle Tremors: 4-Moderate,w/Arms Extend Anxiety: 3 Agitation: 4-Moderately Restless Paroxysmal Sweats: 3 Orientation: 0-Oriented Tacttile Disturbances: 0-None Auditory Disturbances: 0-None Visual Disturbances: 0-None Headache: 3-Moderate CIWA-Ar Total Score: 20 - Admission Criteria OASAS Guidelines: Admission for Medically Managed Detox: Requires at least one of the followin. CIWA greater than 12 2. Seizures within the past 24 hours 3. Delirium tremens within the past 24 hours 4. Hallucinations within the past 24 hours 5. Acute intervention needed for co occurring medical disorder 6. Acute intervention needed for co occurring psychiatric disorder 7. Severe withdrawal that cannot be handled at a lower level of care (continued vomiting, continued diarrhea, abnormal vital signs) requiring intravenous medication and/or fluids 8. Admission ROS [facility] Chief Complaint: Heroin and alcohol withdrawal symptoms Allergies/Adverse Reactions: Allergies Allergy/AdvReac Type Severity Reaction Status Date / Time No Known Allergies Allergy Verified 09/12/18 19:14 History of Present Illness: 33 years old male with 7 years of heroin dependence and 21 years of alcohol dependence is seeking admission to detox. Patient has been in multiple detox programs and reports insignificant period of sobriety. He has history of seizures and depression. Patient denies suicidal ideation at this time. Patient is on Methadone 100mg tablet oral at [facility]. Dose is yet to be confirmed by the nurse. Exam Limitations: No Limitations - Ebola screening Have you traveled outside of the country in the last 21 days: No (N) Have you had contact with anyone from an Ebola affected area: No Do you have a fever: No - Review of Systems Constitutional: Chills, Loss of Appetite, Malaise, Night Sweats, Changes in sleep EENT: reports: Sinus Pressure Respiratory: reports: No Symptoms reported Cardiac: reports: No Symptoms Reported GI: reports: Diarrhea, Nausea, Poor Appetite, Poor Fluid Intake, Abdominal cramping : reports: No Symptoms Reported Musculoskeletal: reports: Back Pain, Joint Pain Integumentary: reports: Dryness, Flushing Neuro: reports: Headache, Tremors Endocrine: reports: No Symptoms Reported Hematology: reports: No Symptoms Reported Psychiatric: reports: Anxious, Depressed Other Systems: Reviewed and Negative Patient History - Patient Medical History Hx Anemia: No Hx Asthma: No Hx Chronic Obstructive Pulmonary Disease (COPD): No Hx Cancer: No Hx Cardiac Disorders: No Hx Congestive Heart Failure: No Hx Hypertension: No Hx Hypercholesterolemia: No Hx Pacemaker: No HX Cerebrovascular Accident: No Hx Seizures: Yes (Not on medication) Hx Dementia: No Hx Diabetes: No Hx Gastrointestinal Disorders: No Hx Liver Disease: No Hx Genitourinary Disorders: No Hx Sexually Transmitted Disorders: No Hx Renal Disease (ESRD): No Hx Thyroid Disease: No Hx Human Immunodeficiency Virus (HIV): No Hx Hepatitis C: No Hx Depression: Yes (Not on medication) Hx Suicide Attempt: No (Patient denies suicidal ideation at this time) Hx Bipolar Disorder: No Hx Schizophrenia: No - Patient Surgical History Past Surgical History: No Hx Neurologic Surgery: No Hx Cataract Extraction: No Hx Cardiac Surgery: No Hx Lung Surgery: No Hx Breast Surgery: No Hx Breast Biopsy: No Hx Abdominal Surgery: No Hx Appendectomy: No Hx Cholecystectomy: No Hx Genitourinary Surgery: No Hx Section: No Hx Orthopedic Surgery: No Anesthesia Reaction: No - PPD History Previous Implant?: Yes Documented Results: Negative w/proof Date: 12/11/16 Results: 0MM PPD to be Administered?: Yes - Reproductive History Patient is a Female of Child Bearing Age (11 -55 yrs old): No (male) - Smoking Cessation Smoking history: Current every day smoker Have you smoked in the past 12 months: Yes Aproximately how many cigarettes per day: 20 Cigars Per Day: 0 Hx Chewing Tobacco Use: No Initiated information on smoking cessation: Yes 'Breaking Loose' booklet given: 09/12/18 - Substance & Tx. History Hx Alcohol Use: Yes Hx Substance Use: Yes Substance Use Type: Alcohol, Cocaine, Heroin, Marijuana, Opiates Hx Substance Use Treatment: Yes ([facility]) - Substances abused Heroin Substance route: Injection Frequency: Daily Amount used: 3 bundles Age of first use: 25 Date of last use: 09/11/18 Alcohol Substance route: Oral Frequency: Daily Amount used: half a gallon Age of first use: 12 Date of last use: 09/12/18 Family Disease History - Family Disease History Family Disease History: Other: Father (Alcoholic) Admission Physical Exam [facility] - Vital Signs Vital Signs: Vital Signs - 24 hr 09/12/18 19:16 Temperature 98.7 F Pulse Rate 61 Respiratory 16 Rate Blood Pressure 110/57 L - Physical General Appearance: Yes: Moderate Distress, Alcohol on Breath, Tremorous, Irritable, Anxious HEENTM: Yes: Within Normal Limits, Nasal Congestion Respiratory: Yes: Lungs Clear, Normal Breath Sounds, No Respiratory Distress Neck: Yes: Supple Breast: Yes: Breast Exam Deferred Cardiology: Yes: Regular Rhythm, Regular Rate Abdominal: Yes: Normal Bowel Sounds, Soft Genitourinary: Yes: Within Normal Limits Back: Yes: Normal Inspection Musculoskeletal: Yes: Within Normal Limits, Back pain Extremities: Yes: Tremors Neurological: Yes: Alert, Normal Mood/Affect Integumentary: Yes: Within Normal Limits, Warm Lymphatic: Yes: Within Normal Limits - Diagnostic (1) Alcohol dependence with uncomplicated withdrawal Current Visit: Yes Status: Acute (2) Cannabis dependence, uncomplicated Current Visit: Yes Status: Chronic (3) Cocaine dependence, uncomplicated Current Visit: Yes Status: Chronic (4) Nicotine dependence Current Visit: Yes Status: Acute Qualifiers: Nicotine product type: cigarettes Substance use status: in withdrawal Qualified Code(s): F17.213 - Nicotine dependence, cigarettes, with withdrawal (5) Opioid dependence with withdrawal Current Visit: Yes Status: Acute (6) Depression Current Visit: Yes Status: Chronic Qualifiers: Depression Type: unspecified Qualified Code(s): F32.9 - Major depressive disorder, single episode, unspecified (7) Seizures Current Visit: No Status: Chronic Cleared for Admission [facility] - Detox or Rehab [facility] Level of Care: Medically Managed Detox Regimen/Protocol: Librium Breathalyzer - Breathalyzer Breathalyzer: 0.027 Urine Drug Screen - Test Device Lot number: [id number] Expiration date: 05/20/20 - Control Is test valid?: Yes - Results Drug screen NEGATIVE: No Urine drug screen results: THC-Marijuana, BUDDY-Cocaine, FEN-Fentanyl, MOP-Opiates , MTD-Methadone Inpatient Rehab Admission - Rehab Decision to Admit Inpatient rehab admission?: No
[2018-09-12] MEDS ORDERED: NICOTINE POLACRILEX 2 MG GUM BUC PRN (22:36)
[2018-09-12] MEDS ORDERED: BISMUTH SUBSALICYLATE 524 MG/30 ML UD PO PRN (22:36)
[2018-09-12] MEDS ORDERED: hydrOXYzine PAMOATE 25 MG CAPSULE (FP) PO PRN (22:36)
[2018-09-12] MEDS ORDERED: MAGNESIUM CITRATE 300 ML BOTTLE PO PRN (22:36)
[2018-09-12] MEDS ORDERED: ACETAMINOPHEN 325 MG TABLET (FP) PO PRN ×2 (22:36)
[2018-09-12] MEDS ORDERED: MELATONIN 5 MG TABLETS PO PRN (22:36)
[2018-09-12] MEDS ORDERED: MENTHOL/PHENOL 1 EACH UD MM PRN (22:36)
[2018-09-12] MEDS ORDERED: IBUPROFEN 400 MG TABLET (FP) PO PRN (22:36)
[2018-09-12] MEDS ORDERED: chlordiazePOXIDE HCL 25 MG CAPSULE PO PRN (22:36)
[2018-09-12] MEDS ORDERED: cloNIDine HCL 0.1 MG TABLET PO PRN (22:36)
[2018-09-12] MEDS ORDERED: MAGNESIUM HYDROX 2400MG/30ML ORAL SUSPENSION 30 ML CUP PO PRN (22:36)
[2018-09-12] MEDS ORDERED: METHADONE HCL 10 MG TABLET (FOR DETOX USE ONLY) PO ONE (23:00)
[2018-09-12] MEDS: chlordiazePOXIDE HCL 25 MG CAPSULE PO SCH (23:30)
[2018-09-13] MEDS: chlordiazePOXIDE HCL 25 MG CAPSULE PO SCH ×4 (06:21→22:41)
[2018-09-13] MEDS ORDERED: METHADONE HCL 10 MG TABLET PO ONE (09:02)
[2018-09-13] MEDS ORDERED: METHADONE 80 MG, METHADONE 20 MG PO ONE (09:15)
[2018-09-13] MEDS ORDERED: METHADONE HCL 10 MG TABLET (FOR DETOX USE ONLY) PO ONE (10:00)
[2018-09-13] MEDS: PRENATAL VITAMINS W/ FOLIC ACID TABLET (FP) PO SCH (10:17)
[2018-09-13] MEDS: NICOTINE 14 MG/24 HOURS TOPICAL PATCH TD SCH (10:17)
[2018-09-13 10:18] LABS: HEMATOCRIT 38.2 % (35.4-49); HEMOGLOBIN 12.2 GM/dL (11.7-16.9); MCHC 31.9 g/dl (32.0-35.9); MEAN CELL VOLUME 84.8 fl (80-96); MEAN PLT VOLUME 8.7 fl (7.5-11.1); PLATELET COUNT 215 K/MM3 (134-434); RBC 4.51 M/mm3 (4.00-5.60); RDW 14.6 % (11.9-15.9)
[2018-09-13] MEDS ORDERED: METHADONE HCL 10 MG TABLET ONE (10:18)
[2018-09-13] MEDS ORDERED: METHADONE HCL 40 MG DISPERSABLE TABLET ONE (10:19)
--- NOTE | 2018-09-13 10:19 | CONSULT ---
[facility] Psychiatric Consult - Data Date of interview: 09/13/18 Admission source: Self-referred Identifying data: Mr Rojas is a 33 years old single male, unemployed receiving food stamp, homeless seeking detox treatment for alcohol and opioid Substance Abuse History: Reports history of alcohol and heroin use. Refer to addiction counselor's summary for further information Medical History: Significant for seizure disorder as per [facility] entry. However, patient denies history of seizure. Patient is on methadone 100 mg/day from [facility]. Smokes cigarettes 1 ppd Psychiatric History: Denies history of previous psychiatric treatment. However reports feeling depressed and sleeping poorly Physical/Sexual Abuse/Trauma History: Denies Mental Status Exam - Mental Status Exam Alert and Oriented to: Time, Place, Person Cognitive Function: Fair Patient Appearance: Well Groomed Mood: Depressed Affect: Appropriate Patient Behavior: Cooperative Speech Pattern: Clear Voice Loudness: Normal, Limited Variation Thought Process: Intact, Goal Oriented Thought Disorder: Not Present Hallucinations: Denies Suicidal Ideation: Denies Homicidal Ideation: Denies Insight/Judgement: Poor Sleep: Poorly Appetite: Good Muscle strength/Tone: Normal Gait/Station: Normal Psychiatric Findings - Problem List ([place] 1, 2,3) (1) Substance induced mood disorder Current Visit: Yes Status: Chronic (2) Substance-induced sleep disorder Current Visit: No Status: Chronic (3) Alcohol dependence with uncomplicated withdrawal Current Visit: Yes Status: Acute (4) Cocaine dependence, uncomplicated Current Visit: Yes Status: Acute (5) Opioid dependence on agonist therapy Current Visit: Yes Status: Chronic (6) Nicotine dependence Current Visit: Yes Status: Chronic Qualifiers: Nicotine product type: cigarettes Substance use status: in withdrawal Qualified Code(s): F17.213 - Nicotine dependence, cigarettes, with withdrawal (7) Seizures Current Visit: No Status: Chronic - Initial Treatment Plan Initial Treatment Plan: 1) Start Belsomra 10 mg po HS prn for insomnia. 2) Continue inpatient detoxification
[2018-09-13 10:25] LABS: ALBUMIN 3.4 g/dl (3.4-5.0); BILIRUBIN,TOTAL 0.2 mg/dL (0.2-1); CALCIUM 8.4 mg/dL (8.5-10.1); CREATININE 0.9 mg/dL (0.55-1.3); POTASSIUM 4.3 mmol/L (3.5-5.1); TOT PROT 6.6 g/dl (6.4-8.2)
--- NOTE | 2018-09-13 10:40 | EKG ---
Test Reason : Blood Pressure : / mmHG Vent. Rate : 056 BPM Atrial Rate : 056 BPM P-R Int : 126 ms QRS Dur : 090 ms QT Int : 456 ms P-R-T Axes : 040 021 019 degrees QTc Int : 440 ms SINUS BRADYCARDIA CANNOT RULE OUT ANTERIOR INFARCT , AGE UNDETERMINED ABNORMAL ECG WHEN COMPARED WITH ECG OF 19-MAY-2017 23:02, NO SIGNIFICANT CHANGE WAS FOUND Confirmed by AARON LUNA, SHANICE ([id number]) on 09/13/2018 10:40:07 AM Referred By: ARIS RUST Confirmed By:SHANICE WALKER MD
--- NOTE | 2018-09-13 13:33 | PN ---
S CIWA - CIWA Score Nausea/Vomitin-No Nausea/No Vomiting Muscle Tremors: 3 Anxiety: 3 Agitation: 3 Paroxysmal Sweats: 3 Orientation: 0-Oriented Tacttile Disturbances: 0-None Auditory Disturbances: 0-None Visual Disturbances: 0-None Headache: 0-None Present CIWA-Ar Total Score: 12 BHS Progress Note (SOAP) Subjective: insomnia sweats shakes nausea Objective: 09/13/18 13:32 Vital Signs Temperature 97.8 F 09/13/18 09:15 Pulse Rate 56 L 09/13/18 09:15 Respiratory Rate 18 09/13/18 09:15 Blood Pressure 100/61 09/13/18 09:15 O2 Sat by Pulse Oximetry (%) Laboratory Tests 09/13/18 09/13/18 09/13/18 07:00 07:00 07:00 WBC 6.0 RBC 4.51 Hgb 12.2 Hct 38.2 MCV 84.8 MCH 27.0 MCHC 31.9 L RDW 14.6 Plt Count 215 MPV 8.7 Sodium 141 Potassium 4.3 Chloride 105 Carbon Dioxide 31 Anion Gap 5 L BUN 16.0 Creatinine 0.9 Est GFR (CKD-EPI)AfAm 130.52 Est GFR (CKD-EPI)NonAf 112.62 Random Glucose 86 Calcium 8.4 L Total Bilirubin 0.2 AST 21 ALT 20 Alkaline Phosphatase 72 Total Protein 6.6 Albumin 3.4 RPR Titer Nonreactive HIV 1&2 Antibody Screen HIV P24 Antigen 09/13/18 07:00 WBC RBC Hgb Hct MCV MCH MCHC RDW Plt Count MPV Sodium Potassium Chloride Carbon Dioxide Anion Gap BUN Creatinine Est GFR (CKD-EPI)AfAm Est GFR (CKD-EPI)NonAf Random Glucose Calcium Total Bilirubin AST ALT Alkaline Phosphatase Total Protein Albumin RPR Titer HIV 1&2 Antibody Screen Negative HIV P24 Antigen Negative aaox3 ambulating no acute distress Assessment: 09/13/18 13:33 withdrawal sx Plan: continue detox increase fluids zofran prn melatonin 5mg prn
[2018-09-13] MEDS ORDERED: ONDANSETRON *ODT* 4 MG TABLET SL PRN (13:34)
[2018-09-13] MEDS: THIAMINE HCL 100 MG TABLET (FP) PO SCH (22:40)
[2018-09-13] MEDS: METHOCARBAMOL 500 MG TABLET PO PRN (22:43)
[2018-09-14] MEDS ORDERED: METHADONE HCL 40 MG DISPERSABLE TABLET ONE (05:05)
[2018-09-14] MEDS ORDERED: METHADONE HCL 10 MG TABLET ONE (05:05)
[2018-09-14] MEDS: chlordiazePOXIDE HCL 25 MG CAPSULE PO SCH ×3 (05:16→18:00)
[2018-09-14] MEDS: METHADONE 80 MG, METHADONE 20 MG PO SCH (05:17)
[2018-09-14] MEDS ORDERED: METHADONE HCL 10 MG TABLET PO SCH (06:00)
[2018-09-14] MEDS: MAG HYDROX/AL HYDROX/SIMETH 30 ML UNIT-DOSE CUP PO PRN (06:44)
[2018-09-14] MEDS ORDERED: IBUPROFEN 400 MG TABLET (FP) PO PRN (09:38)
[2018-09-14] MEDS ORDERED: METHADONE HCL 10 MG TABLET (FOR DETOX USE ONLY) PO ONE (10:00)
[2018-09-14] MEDS: NICOTINE 14 MG/24 HOURS TOPICAL PATCH TD SCH (10:08)
[2018-09-14] MEDS: PRENATAL VITAMINS W/ FOLIC ACID TABLET (FP) PO SCH (10:09)
--- NOTE | 2018-09-14 10:26 | PN ---
S CIWA - CIWA Score Nausea/Vomitin-No Nausea/No Vomiting Muscle Tremors: 2 Anxiety: 2 Agitation: 2 Paroxysmal Sweats: 2 Orientation: 0-Oriented Tacttile Disturbances: 0-None Auditory Disturbances: 0-None Visual Disturbances: 0-None Headache: 0-None Present CIWA-Ar Total Score: 8 BHS Progress Note (SOAP) Subjective: sweats interrupted sleep body aches Objective: 09/14/18 10:34 Vital Signs Temperature 97.3 F L 09/14/18 09:39 Pulse Rate 70 09/14/18 09:39 Respiratory Rate 18 09/14/18 09:39 Blood Pressure 124/77 09/14/18 09:39 O2 Sat by Pulse Oximetry (%) Laboratory Tests 09/13/18 09/13/18 09/13/18 07:00 07:00 07:00 WBC 6.0 RBC 4.51 Hgb 12.2 Hct 38.2 MCV 84.8 MCH 27.0 MCHC 31.9 L RDW 14.6 Plt Count 215 MPV 8.7 Sodium 141 Potassium 4.3 Chloride 105 Carbon Dioxide 31 Anion Gap 5 L BUN 16.0 Creatinine 0.9 Est GFR (CKD-EPI)AfAm 130.52 Est GFR (CKD-EPI)NonAf 112.62 Random Glucose 86 Calcium 8.4 L Total Bilirubin 0.2 AST 21 ALT 20 Alkaline Phosphatase 72 Total Protein 6.6 Albumin 3.4 RPR Titer Nonreactive HIV 1&2 Antibody Screen HIV P24 Antigen 09/13/18 07:00 WBC RBC Hgb Hct MCV MCH MCHC RDW Plt Count MPV Sodium Potassium Chloride Carbon Dioxide Anion Gap BUN Creatinine Est GFR (CKD-EPI)AfAm Est GFR (CKD-EPI)NonAf Random Glucose Calcium Total Bilirubin AST ALT Alkaline Phosphatase Total Protein Albumin RPR Titer HIV 1&2 Antibody Screen Negative HIV P24 Antigen Negative aaox3 ambulating no acute distress Assessment: 09/14/18 10:35 withdrawal sx Plan: continue detox increase fluids motrin prn baclofen prn analgesic balm
[2018-09-14] MEDS: METHOCARBAMOL 500 MG TABLET PO PRN (18:05)
[2018-09-14] MEDS ORDERED: chlordiazePOXIDE HCL 10 MG CAPSULE PO PRN (23:00)
[2018-09-14] MEDS: traZODone HCL 50 MG TABLET (FP) PO SCH (23:02)
[2018-09-14] MEDS: THIAMINE HCL 100 MG TABLET (FP) PO SCH (23:02)
[2018-09-14] MEDS: chlordiazePOXIDE HCL 10 MG CAPSULE PO SCH (23:02)
[2018-09-15] MEDS ORDERED: METHADONE HCL 10 MG TABLET ONE (04:34)
[2018-09-15] MEDS ORDERED: METHADONE HCL 40 MG DISPERSABLE TABLET ONE (04:35)
[2018-09-15] MEDS: chlordiazePOXIDE HCL 10 MG CAPSULE PO SCH ×4 (05:23→22:33)
[2018-09-15] MEDS: METHADONE 80 MG, METHADONE 20 MG PO SCH (05:23)
[2018-09-15] MEDS ORDERED: METHADONE HCL 10 MG TABLET (FOR DETOX USE ONLY) PO ONE (10:00)
[2018-09-15] MEDS: PRENATAL VITAMINS W/ FOLIC ACID TABLET (FP) PO SCH (10:08)
[2018-09-15] MEDS: NICOTINE 14 MG/24 HOURS TOPICAL PATCH TD SCH (10:08)
[2018-09-15] MEDS: MAG HYDROX/AL HYDROX/SIMETH 30 ML UNIT-DOSE CUP PO PRN (10:12)
[2018-09-15] MEDS: LIDOCAINE 5% TOPICAL PATCH TP SCH (10:13)
--- NOTE | 2018-09-15 11:42 | PN ---
S CIWA - CIWA Score Nausea/Vomitin-No Nausea/No Vomiting Muscle Tremors: 3 Anxiety: 2 Agitation: 2 Paroxysmal Sweats: 2 Orientation: 0-Oriented Tacttile Disturbances: 0-None Auditory Disturbances: 0-None Visual Disturbances: 0-None Headache: 0-None Present CIWA-Ar Total Score: 9 BHS Progress Note (SOAP) Subjective: low back pain anxiety Objective: 09/15/18 11:41 Vital Signs Temperature 97.3 F L 09/15/18 10:00 Pulse Rate 75 09/15/18 10:00 Respiratory Rate 17 09/15/18 10:00 Blood Pressure 125/89 09/15/18 10:00 O2 Sat by Pulse Oximetry (%) Laboratory Tests 09/13/18 09/13/18 09/13/18 07:00 07:00 07:00 WBC 6.0 RBC 4.51 Hgb 12.2 Hct 38.2 MCV 84.8 MCH 27.0 MCHC 31.9 L RDW 14.6 Plt Count 215 MPV 8.7 Sodium 141 Potassium 4.3 Chloride 105 Carbon Dioxide 31 Anion Gap 5 L BUN 16.0 Creatinine 0.9 Est GFR (CKD-EPI)AfAm 130.52 Est GFR (CKD-EPI)NonAf 112.62 Random Glucose 86 Calcium 8.4 L Total Bilirubin 0.2 AST 21 ALT 20 Alkaline Phosphatase 72 Total Protein 6.6 Albumin 3.4 RPR Titer Nonreactive HIV 1&2 Antibody Screen HIV P24 Antigen 09/13/18 07:00 WBC RBC Hgb Hct MCV MCH MCHC RDW Plt Count MPV Sodium Potassium Chloride Carbon Dioxide Anion Gap BUN Creatinine Est GFR (CKD-EPI)AfAm Est GFR (CKD-EPI)NonAf Random Glucose Calcium Total Bilirubin AST ALT Alkaline Phosphatase Total Protein Albumin RPR Titer HIV 1&2 Antibody Screen Negative HIV P24 Antigen Negative labs noted aaox3 ambulating no acute distress Assessment: 09/15/18 11:41 mild withdrawal sx Plan: continue detox lidocaine patch ordered motrin 800mg prn and reminded pt this order was place yesterday; please ask the RN for it when needed
--- NOTE | 2018-09-15 12:27 | EKG ---
Test Reason : Blood Pressure : / mmHG Vent. Rate : 058 BPM Atrial Rate : 058 BPM P-R Int : 128 ms QRS Dur : 088 ms QT Int : 440 ms P-R-T Axes : 041 030 035 degrees QTc Int : 431 ms SINUS BRADYCARDIA OTHERWISE NORMAL ECG WHEN COMPARED WITH ECG OF 12-SEP-2018 22:57, NO SIGNIFICANT CHANGE WAS FOUND Confirmed by YOSELIN LIN MD ([id number]) on 09/15/2018 12:27:34 PM Referred By: YOCASTA DONNELLY Confirmed By:YOSELIN LIN MD
[2018-09-15] MEDS: LIDOCAINE PATCH REMOVAL MC SCH (22:33)
[2018-09-15] MEDS: THIAMINE HCL 100 MG TABLET (FP) PO SCH (22:33)
[2018-09-15] MEDS: traZODone HCL 50 MG TABLET (FP) PO SCH (22:33)
[2018-09-16] MEDS ORDERED: METHADONE HCL 10 MG TABLET ONE (03:51)
[2018-09-16] MEDS ORDERED: METHADONE HCL 40 MG DISPERSABLE TABLET ONE (03:52)
[2018-09-16] MEDS ORDERED: METHADONE HCL 5 MG TABLET (FOR DETOX USE ONLY) PO ONE (06:00)
[2018-09-16] MEDS ORDERED: TRIMETHOBENZAMIDE HCL 200MG/2ML INJ IM ONE (06:28)
--- NOTE | 2018-09-16 06:30 | PN ---
S Progress Note Note: Patient vomited x 1 Vital Signs Temperature 97.5 F L 09/16/18 06:27 Pulse Rate 65 09/16/18 06:27 Respiratory Rate 20 09/16/18 06:27 Blood Pressure 125/80 09/16/18 06:27 O2 Sat by Pulse Oximetry (%) Acion: Tigan 200mg Intramuscular ordered
[2018-09-16] MEDS: METHADONE 80 MG, METHADONE 20 MG PO SCH (06:36)
[2018-09-16] MEDS ORDERED: LOPERAMIDE HCL 2 MG CAPSULE PO PRN (11:08)
--- NOTE | 2018-09-16 11:10 | PN ---
S CIWA - CIWA Score Nausea/Vomitin-Mild Nausea/No Vomiting Muscle Tremors: 2 Anxiety: 1-Mildly Anxious Agitation: 0-Normal Activity Paroxysmal Sweats: No Perspiration Orientation: 0-Oriented Tacttile Disturbances: 0-None Auditory Disturbances: 0-None Visual Disturbances: 0-None Headache: 0-None Present CIWA-Ar Total Score: 4 BHS Progress Note (SOAP) Subjective: diarrhea nausea Objective: 09/16/18 11:09 Vital Signs Temperature 98.4 F 09/16/18 09:23 Pulse Rate 70 09/16/18 09:23 Respiratory Rate 18 09/16/18 09:23 Blood Pressure 143/84 09/16/18 09:23 O2 Sat by Pulse Oximetry (%) Laboratory Tests 09/13/18 09/13/18 09/13/18 07:00 07:00 07:00 WBC 6.0 RBC 4.51 Hgb 12.2 Hct 38.2 MCV 84.8 MCH 27.0 MCHC 31.9 L RDW 14.6 Plt Count 215 MPV 8.7 Sodium 141 Potassium 4.3 Chloride 105 Carbon Dioxide 31 Anion Gap 5 L BUN 16.0 Creatinine 0.9 Est GFR (CKD-EPI)AfAm 130.52 Est GFR (CKD-EPI)NonAf 112.62 Random Glucose 86 Calcium 8.4 L Total Bilirubin 0.2 AST 21 ALT 20 Alkaline Phosphatase 72 Total Protein 6.6 Albumin 3.4 RPR Titer Nonreactive HIV 1&2 Antibody Screen HIV P24 Antigen 09/13/18 07:00 WBC RBC Hgb Hct MCV MCH MCHC RDW Plt Count MPV Sodium Potassium Chloride Carbon Dioxide Anion Gap BUN Creatinine Est GFR (CKD-EPI)AfAm Est GFR (CKD-EPI)NonAf Random Glucose Calcium Total Bilirubin AST ALT Alkaline Phosphatase Total Protein Albumin RPR Titer HIV 1&2 Antibody Screen Negative HIV P24 Antigen Negative aaox3 ambulating no acute distress Assessment: 09/16/18 11:09 mild withdrawal sx Plan: continue detox increase fluids imodium prn tigan prn d/c in am
[2018-09-16] MEDS: LIDOCAINE 5% TOPICAL PATCH TP SCH (12:08)
[2018-09-16] MEDS: PRENATAL VITAMINS W/ FOLIC ACID TABLET (FP) PO SCH (12:08)
[2018-09-16] MEDS: chlordiazePOXIDE HCL 10 MG CAPSULE PO SCH ×2 (12:08→22:51)
[2018-09-16] MEDS: NICOTINE 14 MG/24 HOURS TOPICAL PATCH TD SCH (12:08)
[2018-09-16] MEDS: LIDOCAINE PATCH REMOVAL MC SCH (22:51)
[2018-09-16] MEDS: THIAMINE HCL 100 MG TABLET (FP) PO SCH (22:51)
[2018-09-17] MEDS ORDERED: METHADONE HCL 10 MG TABLET ONE (04:15)
[2018-09-17] MEDS ORDERED: METHADONE HCL 40 MG DISPERSABLE TABLET ONE (04:15)
[2018-09-17] MEDS: METHADONE 80 MG, METHADONE 20 MG PO SCH (05:32)
--- NOTE | 2018-09-17 08:56 | DS ---
[facility] Detox Discharge Summary Admission Date: 09/12/18 Discharge Date: 09/17/18 - History Present History: Alcohol Dependence, Cannabis Dependence, Cocaine Dependence, Opioid Dependence - Physical Exam Results Vital Signs: Vital Signs Temperature 97.9 F 09/17/18 06:53 Pulse Rate 63 09/17/18 06:53 Respiratory Rate 18 09/17/18 06:53 Blood Pressure 104/55 L 09/17/18 06:53 O2 Sat by Pulse Oximetry (%) - Treatment Hospital Course: Detox Protocol Followed, Detoxed Safely, Responded well, Discharged Condition Good, Rehab Referral Accepted - Medication Discharge Medications: Ambulatory Orders Methadone 100 mg PO DAILY 09/12/18 - Diagnosis (1) Alcohol dependence with uncomplicated withdrawal Current Visit: Yes Status: Chronic (2) Cocaine dependence, uncomplicated Current Visit: Yes Status: Chronic (3) Opioid dependence with withdrawal Current Visit: Yes Status: Chronic (4) Cannabis dependence, uncomplicated Current Visit: Yes Status: Chronic (5) Depression Current Visit: Yes Status: Chronic Qualifiers: Depression Type: unspecified Qualified Code(s): F32.9 - Major depressive disorder, single episode, unspecified (6) Nicotine dependence Current Visit: Yes Status: Chronic Qualifiers: Nicotine product type: cigarettes Substance use status: uncomplicated Qualified Code(s): F17.210 - Nicotine dependence, cigarettes, uncomplicated (7) Substance induced mood disorder Current Visit: Yes Status: Chronic (8) Insomnia Current Visit: No Status: Acute Qualifiers: Insomnia type: alcohol-induced Qualified Code(s): F10.982 - Alcohol use, unspecified with alcohol-induced sleep disorder (9) Substance-induced sleep disorder Current Visit: No Status: Chronic - AMA Did Patient Leave Against Medical Advice: No (going to [facility] program)
[2018-09-17 09:35] VITALS: BP 117/62; PULSE 72; TEMP 97.5
== END 2018-09-17 09:30 | disposition home or self-care (01) | DRG 773 ==
LOC: YASAS 18:03 → Y6N 22:49
PROVIDERS: ADMIT Surgery; ATTEND Surgery
PROC: HZ2ZZZZ Detoxification Services for Substance Abuse Treatment (ICD-10-PCS; principal; 2018-09-12)
DX: F11.23 Opioid dependence with withdrawal (principal); F10.230 Alcohol dependence with withdrawal, uncomplicated; F14.20 Cocaine dependence, uncomplicated; F12.20 Cannabis dependence, uncomplicated; F17.210 Nicotine dependence, cigarettes, uncomplicated; F19.24 Other psychoactive substance dependence with psychoactive substance-induced mood disorder; F19.282 Other psychoactive substance dependence with psychoactive substance-induced sleep disorder; F32.9 Major depressive disorder, single episode, unspecified; M54.5 Low back pain; R11.10 Vomiting, unspecified
CPT/HCPCS: 36415; 80053; 85027; 86593; 87389; 93005; 93010

== ENCOUNTER 2020-10-31 13:13 | Inpatient (IN) | payer OTHER ==
[2020-10-31] MEDS ORDERED: ONDANSETRON *ODT* 4 MG TABLET SL PRN (15:31)
[2020-10-31] MEDS ORDERED: MAGNESIUM HYDROX 2400MG/30ML ORAL SUSPENSION 30 ML CUP PO PRN (15:31)
[2020-10-31] MEDS ORDERED: BISMUTH SUBSALICYLATE 524 MG/30 ML PO PRN (15:31)
[2020-10-31] MEDS ORDERED: MAGNESIUM CITRATE 300 ML BOTTLE PO PRN (15:31)
[2020-10-31] MEDS ORDERED: MENTHOL/PHENOL 1 EACH UD MM PRN (15:31)
[2020-10-31] MEDS ORDERED: ACETAMINOPHEN 325 MG TABLET (FP) PO PRN (15:31)
[2020-10-31] MEDS ORDERED: METHOCARBAMOL 500 MG TABLET PO PRN (15:31)
[2020-10-31] MEDS: ACETAMINOPHEN 325 MG TABLET (FP) PO PRN (18:02)
[2020-10-31] MEDS: hydrOXYzine PAMOATE 25 MG CAPSULE (FP) PO SCH ×2 (18:03→22:24)
[2020-10-31] MEDS: IBUPROFEN 400 MG TABLET (FP) PO PRN (22:23)
[2020-10-31] MEDS: THIAMINE HCL 100 MG TABLET (FP) PO SCH (22:24)
[2020-10-31] MEDS: MELATONIN 5 MG TABLETS PO SCH (22:24)
[2020-11-01] MEDS: hydrOXYzine PAMOATE 25 MG CAPSULE (FP) PO SCH ×5 (05:24→22:22)
[2020-11-01] MEDS ORDERED: methaDONE HCL 40 MG DISPERSABLE TABLET PO SCH (07:45)
[2020-11-01] MEDS ORDERED: methaDONE HCL 10 MG TABLET ONE (07:49)
[2020-11-01] MEDS ORDERED: methaDONE HCL 40 MG DISPERSABLE TABLET ONE (07:49)
[2020-11-01] MEDS: PRENATAL VITAMINS W/ FOLIC ACID TABLET (FP) PO SCH (10:29)
[2020-11-01 12:11] LABS: HEMATOCRIT 38.3 % (35.4-49); HEMOGLOBIN 12.5 GM/dL (11.7-16.9); MCH 27.6 pg (25.7-33.7); MCHC 32.6 g/dl (32.0-35.9); MEAN CELL VOLUME 84.7 fl (80-96); MEAN PLT VOLUME 8.9 fl (7.5-11.1); PLATELET COUNT 224 10^3/uL (134-434); RBC 4.52 M/mm3 (4.00-5.60); WHITE BLOOD COUNT 7.9 K/mm3 (4.0-10.0)
[2020-11-01 12:17] LABS: BLOOD UREA NITROGEN 14.7 mg/dL (7-18); CALCIUM 8.4 mg/dL (8.5-10.1)
[2020-11-01 12:18] LABS: ALBUMIN 3.4 g/dl (3.4-5.0)
[2020-11-01 12:20] LABS: CREATININE 0.8 mg/dL (0.55-1.3)
[2020-11-01 12:22] LABS: BILIRUBIN,TOTAL 0.4 mg/dL (0.2-1); TOT PROT 6.4 g/dl (6.4-8.2)
[2020-11-01 13:06] LABS: HIV INTERPRETATION NEGATIVE (NEGATIVE)
[2020-11-01] MEDS: diazePAM 5 MG TABLET PO SCH ×2 (17:52→22:21)
[2020-11-01] MEDS: IBUPROFEN 400 MG TABLET (FP) PO PRN (19:44)
[2020-11-01] MEDS: THIAMINE HCL 100 MG TABLET (FP) PO SCH (22:22)
[2020-11-01] MEDS: SUVOREXANT 10 MG TABLET PO PRN (22:22)
[2020-11-02] MEDS ORDERED: methaDONE HCL 10 MG TABLET ONE (04:10)
[2020-11-02] MEDS ORDERED: methaDONE HCL 40 MG DISPERSABLE TABLET ONE (04:10)
[2020-11-02] MEDS: hydrOXYzine PAMOATE 25 MG CAPSULE (FP) PO SCH ×5 (05:50→22:45)
[2020-11-02] MEDS: diazePAM 5 MG TABLET PO SCH ×4 (05:50→22:45)
[2020-11-02] MEDS: NICOTINE 10 MG CARTRIDGE (INHALER) IH PRN (05:53)
[2020-11-02] MEDS: PRENATAL VITAMINS W/ FOLIC ACID TABLET (FP) PO SCH (10:08)
[2020-11-02] MEDS: IBUPROFEN 400 MG TABLET (FP) PO PRN (10:10)
[2020-11-02] MEDS: THIAMINE HCL 100 MG TABLET (FP) PO SCH (22:46)
[2020-11-02] MEDS: SUVOREXANT 10 MG TABLET PO PRN (22:46)
[2020-11-02] MEDS: MAG HYDROX/AL HYDROX/SIMETH 30 ML UNIT-DOSE CUP PO PRN (22:46)
[2020-11-03] MEDS ORDERED: methaDONE HCL 40 MG DISPERSABLE TABLET ONE (04:01)
[2020-11-03] MEDS ORDERED: methaDONE HCL 10 MG TABLET ONE (04:01)
[2020-11-03] MEDS: MAG HYDROX/AL HYDROX/SIMETH 30 ML UNIT-DOSE CUP PO PRN ×3 (04:21→18:20)
[2020-11-03] MEDS: diazePAM 5 MG TABLET PO SCH ×3 (05:29→22:26)
[2020-11-03] MEDS: hydrOXYzine PAMOATE 25 MG CAPSULE (FP) PO SCH ×5 (05:32→22:25)
[2020-11-03 09:15] LABS: BLOOD UREA NITROGEN 15.5 mg/dL (7-18); CALCIUM 8.2 mg/dL (8.5-10.1)
[2020-11-03 09:16] LABS: ALBUMIN 3.3 g/dl (3.4-5.0)
[2020-11-03 09:19] LABS: CREATININE 0.7 mg/dL (0.55-1.3)
[2020-11-03 09:20] LABS: BILIRUBIN,TOTAL 0.2 mg/dL (0.2-1); TOT PROT 6.4 g/dl (6.4-8.2)
[2020-11-03] MEDS: PRENATAL VITAMINS W/ FOLIC ACID TABLET (FP) PO SCH (10:27)
[2020-11-03] MEDS: diazePAM 5 MG TABLET PO PRN (10:27)
[2020-11-03] MEDS: IBUPROFEN 400 MG TABLET (FP) PO PRN (10:28)
[2020-11-03] MEDS: THIAMINE HCL 100 MG TABLET (FP) PO SCH (22:26)
[2020-11-03] MEDS: MELATONIN 5 MG TABLETS PO SCH (22:26)
[2020-11-04] MEDS ORDERED: methaDONE HCL 10 MG TABLET ONE (04:11)
[2020-11-04] MEDS ORDERED: methaDONE HCL 40 MG DISPERSABLE TABLET ONE (04:11)
[2020-11-04] MEDS: diazePAM 5 MG TABLET PO SCH ×2 (05:29→19:19)
[2020-11-04] MEDS: hydrOXYzine PAMOATE 25 MG CAPSULE (FP) PO SCH ×5 (07:09→21:40)
[2020-11-04] MEDS: PRENATAL VITAMINS W/ FOLIC ACID TABLET (FP) PO SCH (09:56)
[2020-11-04] MEDS: diazePAM 5 MG TABLET PO PRN (09:56)
[2020-11-04] MEDS: IBUPROFEN 400 MG TABLET (FP) PO PRN (19:18)
[2020-11-04] MEDS: THIAMINE HCL 100 MG TABLET (FP) PO SCH (21:40)
[2020-11-04] MEDS: SUVOREXANT 10 MG TABLET PO PRN (21:41)
[2020-11-04] MEDS: ACETAMINOPHEN 325 MG TABLET (FP) PO PRN (23:03)
[2020-11-05] MEDS ORDERED: methaDONE HCL 10 MG TABLET ONE (04:04)
[2020-11-05] MEDS ORDERED: methaDONE HCL 40 MG DISPERSABLE TABLET ONE (04:04)
[2020-11-05] MEDS ORDERED: diazePAM 5 MG TABLET PO ONE (06:00)
[2020-11-05] MEDS: hydrOXYzine PAMOATE 25 MG CAPSULE (FP) PO SCH ×5 (07:21→22:13)
[2020-11-05] MEDS: PRENATAL VITAMINS W/ FOLIC ACID TABLET (FP) PO SCH (10:05)
[2020-11-05 10:24] LABS: INR 0.82 (0.83-1.09)
[2020-11-05 15:11] LABS: ALBUMIN 3.4 g/dl (3.4-5.0); BLOOD UREA NITROGEN 18.2 mg/dL (7-18)
[2020-11-05 15:12] LABS: CALCIUM 8.5 mg/dL (8.5-10.1)
[2020-11-05 15:14] LABS: CREATININE 0.6 mg/dL (0.55-1.3)
[2020-11-05 15:16] LABS: BILIRUBIN,TOTAL 0.1 mg/dL (0.2-1); TOT PROT 6.7 g/dl (6.4-8.2)
[2020-11-05] MEDS: THIAMINE HCL 100 MG TABLET (FP) PO SCH (22:13)
[2020-11-05] MEDS: NICOTINE 10 MG CARTRIDGE (INHALER) IH PRN (22:14)
[2020-11-06] MEDS ORDERED: methaDONE HCL 10 MG TABLET ONE (03:56)
[2020-11-06] MEDS ORDERED: methaDONE HCL 40 MG DISPERSABLE TABLET ONE (03:57)
[2020-11-06] MEDS: hydrOXYzine PAMOATE 25 MG CAPSULE (FP) PO SCH ×2 (05:49→10:12)
[2020-11-06 08:55] VITALS: BP 115/69; PULSE 69; TEMP 96.8
[2020-11-06] MEDS: PRENATAL VITAMINS W/ FOLIC ACID TABLET (FP) PO SCH (10:12)
[2020-11-06] MEDS: IBUPROFEN 400 MG TABLET (FP) PO PRN (10:12)
== END 2020-11-06 11:40 | disposition other institution (70) | DRG 773 ==
LOC: YASAS 13:13 → Y3N 16:28 → UNDOADMIN 16:28
PROVIDERS: ADMIT Allergy & Immunology; ATTEND Allergy & Immunology
PROC: HZ2ZZZZ Detoxification Services for Substance Abuse Treatment (ICD-10-PCS; principal; 2020-10-31)
DX: F10.230 Alcohol dependence with withdrawal, uncomplicated (principal); F13.230 Sedative, hypnotic or anxiolytic dependence with withdrawal, uncomplicated; F11.20 Opioid dependence, uncomplicated; F14.20 Cocaine dependence, uncomplicated; F12.20 Cannabis dependence, uncomplicated; F17.210 Nicotine dependence, cigarettes, uncomplicated; F19.282 Other psychoactive substance dependence with psychoactive substance-induced sleep disorder; F19.24 Other psychoactive substance dependence with psychoactive substance-induced mood disorder; R74.8 Abnormal levels of other serum enzymes; R74.01 Elevation of levels of liver transaminase levels; H11.31 Conjunctival hemorrhage, right eye; S05.8X1A Other injuries of right eye and orbit, initial encounter; Y04.2XXA Assault by strike against or bumped into by another person, initial encounter; Y92.238 Other place in hospital as the place of occurrence of the external cause; Z56.0 Unemployment, unspecified; Z59.0 Homelessness
CPT/HCPCS: 36415; 80053; 85027; 85610; 86780; 87389; C9803; U0003; U0005

== ENCOUNTER 2020-11-06 11:41 | Inpatient (IN) | payer OTHER ==
[2020-11-06] MEDS ORDERED: MAGNESIUM CITRATE 300 ML BOTTLE PO PRN (13:45)
[2020-11-06] MEDS ORDERED: LOPERAMIDE HCL 2 MG CAPSULE PO PRN (13:45)
[2020-11-06] MEDS ORDERED: MENTHOL/PHENOL 1 EACH UD MM PRN (13:45)
[2020-11-06] MEDS ORDERED: MAGNESIUM HYDROX 2400MG/30ML ORAL SUSPENSION 30 ML CUP PO PRN (13:45)
[2020-11-06] MEDS ORDERED: MAG HYDROX/AL HYDROX/SIMETH 30 ML UNIT-DOSE CUP PO PRN (13:45)
[2020-11-06] MEDS ORDERED: P-EPHED 60MG/TRIPROLIDI 2.5MG TABLET PO PRN (13:45)
[2020-11-06] MEDS ORDERED: ACETAMINOPHEN 325 MG TABLET (FP) PO PRN (13:45)
[2020-11-06] MEDS ORDERED: guaiFENesin 200 MG/10 ML 10 ML UNIT-DOSE CUPS PO PRN (13:45)
[2020-11-06] MEDS: THIAMINE HCL 100 MG TABLET (FP) PO SCH (21:39)
[2020-11-06] MEDS: MELATONIN 5 MG TABLETS PO SCH (21:39)
[2020-11-06] MEDS: hydrOXYzine PAMOATE 25 MG CAPSULE (FP) PO PRN (21:40)
[2020-11-07] MEDS ORDERED: methaDONE HCL 10 MG TABLET PO SCH (06:00)
[2020-11-07] MEDS ORDERED: methaDONE HCL 40 MG DISPERSABLE TABLET ONE (06:01)
[2020-11-07] MEDS ORDERED: methaDONE HCL 10 MG TABLET ONE (06:02)
[2020-11-07] MEDS ORDERED: NICOTINE 7 MG/24 HOURS TOPICAL PATCH TD SCH (10:00)
[2020-11-07] MEDS: hydrOXYzine PAMOATE 25 MG CAPSULE (FP) PO PRN ×2 (10:00→21:09)
[2020-11-07] MEDS: PRENATAL VITAMINS W/ FOLIC ACID TABLET (FP) PO SCH (10:00)
[2020-11-07] MEDS: NICOTINE 10 MG CARTRIDGE (INHALER) IH PRN ×2 (10:15→21:11)
[2020-11-07] MEDS: MELATONIN 5 MG TABLETS PO SCH (21:09)
[2020-11-07] MEDS: THIAMINE HCL 100 MG TABLET (FP) PO SCH (21:09)
[2020-11-08] MEDS ORDERED: methaDONE HCL 10 MG TABLET ONE (04:20)
[2020-11-08] MEDS ORDERED: methaDONE HCL 40 MG DISPERSABLE TABLET ONE (04:20)
[2020-11-08] MEDS: PRENATAL VITAMINS W/ FOLIC ACID TABLET (FP) PO SCH (09:41)
[2020-11-08] MEDS: hydrOXYzine PAMOATE 25 MG CAPSULE (FP) PO PRN ×2 (09:41→14:13)
[2020-11-08] MEDS: NICOTINE 10 MG CARTRIDGE (INHALER) IH PRN (21:56)
[2020-11-08] MEDS: MELATONIN 5 MG TABLETS PO SCH (21:56)
[2020-11-08] MEDS: THIAMINE HCL 100 MG TABLET (FP) PO SCH (21:56)
[2020-11-09] MEDS ORDERED: methaDONE HCL 40 MG DISPERSABLE TABLET ONE (03:01)
[2020-11-09] MEDS ORDERED: methaDONE HCL 10 MG TABLET ONE (03:01)
[2020-11-09] MEDS: IBUPROFEN 400 MG TABLET (FP) PO PRN ×3 (06:12→21:18)
[2020-11-09] MEDS ORDERED: PT OWN MED DRAWER 7, Y5N ONE (08:33)
[2020-11-09] MEDS: hydrOXYzine PAMOATE 25 MG CAPSULE (FP) PO PRN (10:16)
[2020-11-09] MEDS: PRENATAL VITAMINS W/ FOLIC ACID TABLET (FP) PO SCH (10:16)
[2020-11-09] MEDS: NICOTINE 10 MG CARTRIDGE (INHALER) IH PRN (13:53)
[2020-11-09] MEDS: MELATONIN 5 MG TABLETS PO SCH (21:17)
[2020-11-09] MEDS: THIAMINE HCL 100 MG TABLET (FP) PO SCH (21:17)
[2020-11-10] MEDS ORDERED: methaDONE HCL 10 MG TABLET ONE (03:16)
[2020-11-10] MEDS ORDERED: methaDONE HCL 40 MG DISPERSABLE TABLET ONE (03:16)
[2020-11-10] MEDS: IBUPROFEN 400 MG TABLET (FP) PO PRN (06:18)
[2020-11-10] MEDS: hydrOXYzine PAMOATE 25 MG CAPSULE (FP) PO PRN (10:17)
[2020-11-10] MEDS: PRENATAL VITAMINS W/ FOLIC ACID TABLET (FP) PO SCH (10:20)
[2020-11-10] MEDS: MELATONIN 5 MG TABLETS PO SCH (21:26)
[2020-11-10] MEDS: THIAMINE HCL 100 MG TABLET (FP) PO SCH (21:26)
[2020-11-10] MEDS: NICOTINE 10 MG CARTRIDGE (INHALER) IH PRN (21:26)
[2020-11-11] MEDS ORDERED: methaDONE HCL 10 MG TABLET ONE (03:13)
[2020-11-11] MEDS ORDERED: methaDONE HCL 40 MG DISPERSABLE TABLET ONE (03:13)
[2020-11-11] MEDS: hydrOXYzine PAMOATE 25 MG CAPSULE (FP) PO PRN (06:22)
[2020-11-11] MEDS: PRENATAL VITAMINS W/ FOLIC ACID TABLET (FP) PO SCH (09:13)
[2020-11-11] MEDS: THIAMINE HCL 100 MG TABLET (FP) PO SCH (21:09)
[2020-11-11] MEDS: MELATONIN 5 MG TABLETS PO SCH (21:09)
[2020-11-11] MEDS: IBUPROFEN 400 MG TABLET (FP) PO PRN (21:10)
[2020-11-12] MEDS ORDERED: methaDONE HCL 40 MG DISPERSABLE TABLET ONE (03:06)
[2020-11-12] MEDS ORDERED: methaDONE HCL 10 MG TABLET ONE (03:07)
[2020-11-12] MEDS ORDERED: PT OWN MED DRAWER 7, Y5N ONE (08:41)
[2020-11-12] MEDS: NICOTINE 10 MG CARTRIDGE (INHALER) IH PRN ×2 (09:18→21:49)
[2020-11-12] MEDS: hydrOXYzine PAMOATE 25 MG CAPSULE (FP) PO PRN ×2 (09:18→21:41)
[2020-11-12] MEDS: PRENATAL VITAMINS W/ FOLIC ACID TABLET (FP) PO SCH (09:19)
[2020-11-12] MEDS: THIAMINE HCL 100 MG TABLET (FP) PO SCH (21:41)
[2020-11-12] MEDS: MELATONIN 5 MG TABLETS PO SCH (21:41)
[2020-11-12] MEDS: IBUPROFEN 400 MG TABLET (FP) PO PRN (21:42)
[2020-11-13] MEDS ORDERED: methaDONE HCL 40 MG DISPERSABLE TABLET ONE (03:05)
[2020-11-13] MEDS ORDERED: methaDONE HCL 10 MG TABLET ONE (03:05)
[2020-11-13] MEDS: hydrOXYzine PAMOATE 25 MG CAPSULE (FP) PO PRN ×2 (10:13→21:31)
[2020-11-13] MEDS: PRENATAL VITAMINS W/ FOLIC ACID TABLET (FP) PO SCH (10:13)
[2020-11-13] MEDS: NICOTINE 10 MG CARTRIDGE (INHALER) IH PRN (10:14)
[2020-11-13] MEDS: NICOTINE 14 MG/24 HOURS TOPICAL PATCH TD SCH (15:53)
[2020-11-13] MEDS: THIAMINE HCL 100 MG TABLET (FP) PO SCH (21:30)
[2020-11-13] MEDS: MELATONIN 5 MG TABLETS PO SCH (21:30)
[2020-11-14] MEDS ORDERED: methaDONE HCL 10 MG TABLET ONE (03:13)
[2020-11-14] MEDS ORDERED: methaDONE HCL 40 MG DISPERSABLE TABLET ONE (03:13)
[2020-11-14] MEDS: hydrOXYzine PAMOATE 25 MG CAPSULE (FP) PO PRN ×2 (10:25→21:10)
[2020-11-14] MEDS: PRENATAL VITAMINS W/ FOLIC ACID TABLET (FP) PO SCH (10:25)
[2020-11-14] MEDS: NICOTINE 14 MG/24 HOURS TOPICAL PATCH TD SCH (10:25)
[2020-11-14] MEDS: NICOTINE 10 MG CARTRIDGE (INHALER) IH PRN ×2 (10:26→21:11)
[2020-11-14] MEDS: THIAMINE HCL 100 MG TABLET (FP) PO SCH (21:10)
[2020-11-14] MEDS: MELATONIN 5 MG TABLETS PO SCH (21:10)
[2020-11-14] MEDS: IBUPROFEN 400 MG TABLET (FP) PO PRN (21:11)
[2020-11-15] MEDS ORDERED: methaDONE HCL 40 MG DISPERSABLE TABLET ONE (03:06)
[2020-11-15] MEDS ORDERED: methaDONE HCL 10 MG TABLET ONE (03:06)
[2020-11-15] MEDS: NICOTINE 14 MG/24 HOURS TOPICAL PATCH TD SCH (11:00)
[2020-11-15] MEDS: PRENATAL VITAMINS W/ FOLIC ACID TABLET (FP) PO SCH (11:00)
[2020-11-15] MEDS: hydrOXYzine PAMOATE 25 MG CAPSULE (FP) PO PRN ×2 (11:01→21:12)
[2020-11-15] MEDS: MELATONIN 5 MG TABLETS PO SCH (21:13)
[2020-11-15] MEDS: THIAMINE HCL 100 MG TABLET (FP) PO SCH (21:13)
[2020-11-15] MEDS: NICOTINE 10 MG CARTRIDGE (INHALER) IH PRN (21:19)
[2020-11-16] MEDS ORDERED: methaDONE HCL 10 MG TABLET ONE (03:12)
[2020-11-16] MEDS ORDERED: methaDONE HCL 40 MG DISPERSABLE TABLET ONE (03:12)
[2020-11-16] MEDS ORDERED: cloNIDine HCL 0.1 MG TABLET PO ONE (09:23)
[2020-11-16] MEDS: PRENATAL VITAMINS W/ FOLIC ACID TABLET (FP) PO SCH (10:40)
[2020-11-16] MEDS: NICOTINE 14 MG/24 HOURS TOPICAL PATCH TD SCH (10:40)
[2020-11-16] MEDS: NICOTINE 10 MG CARTRIDGE (INHALER) IH PRN (10:41)
[2020-11-16] MEDS: hydrOXYzine PAMOATE 25 MG CAPSULE (FP) PO PRN ×2 (14:03→21:08)
[2020-11-16] MEDS: THIAMINE HCL 100 MG TABLET (FP) PO SCH (21:08)
[2020-11-16] MEDS: MELATONIN 5 MG TABLETS PO SCH (21:08)
[2020-11-16] MEDS: IBUPROFEN 400 MG TABLET (FP) PO PRN (21:09)
[2020-11-17] MEDS ORDERED: methaDONE HCL 10 MG TABLET ONE (04:18)
[2020-11-17] MEDS ORDERED: methaDONE HCL 40 MG DISPERSABLE TABLET ONE (04:18)
[2020-11-17] MEDS: NICOTINE 14 MG/24 HOURS TOPICAL PATCH TD SCH (10:00)
[2020-11-17] MEDS: PRENATAL VITAMINS W/ FOLIC ACID TABLET (FP) PO SCH (10:00)
[2020-11-17] MEDS: hydrOXYzine PAMOATE 25 MG CAPSULE (FP) PO PRN ×2 (10:00→21:44)
[2020-11-17] MEDS: NICOTINE 10 MG CARTRIDGE (INHALER) IH PRN ×2 (10:01→21:45)
[2020-11-17] MEDS: THIAMINE HCL 100 MG TABLET (FP) PO SCH (21:44)
[2020-11-17] MEDS: MELATONIN 5 MG TABLETS PO SCH (21:44)
[2020-11-18] MEDS ORDERED: methaDONE HCL 10 MG TABLET ONE (05:13)
[2020-11-18] MEDS ORDERED: methaDONE HCL 40 MG DISPERSABLE TABLET ONE (05:13)
[2020-11-18] MEDS: NICOTINE 14 MG/24 HOURS TOPICAL PATCH TD SCH (10:26)
[2020-11-18] MEDS: NICOTINE 10 MG CARTRIDGE (INHALER) IH PRN ×2 (10:26→19:03)
[2020-11-18] MEDS: hydrOXYzine PAMOATE 25 MG CAPSULE (FP) PO PRN ×2 (10:26→21:06)
[2020-11-18] MEDS: PRENATAL VITAMINS W/ FOLIC ACID TABLET (FP) PO SCH (10:26)
[2020-11-18] MEDS: MELATONIN 5 MG TABLETS PO SCH (21:06)
[2020-11-18] MEDS: THIAMINE HCL 100 MG TABLET (FP) PO SCH (21:06)
[2020-11-19] MEDS ORDERED: methaDONE HCL 40 MG DISPERSABLE TABLET ONE (03:28)
[2020-11-19] MEDS ORDERED: methaDONE HCL 10 MG TABLET ONE (03:29)
[2020-11-19] MEDS: NICOTINE 14 MG/24 HOURS TOPICAL PATCH TD SCH (10:30)
[2020-11-19] MEDS: hydrOXYzine PAMOATE 25 MG CAPSULE (FP) PO PRN ×2 (10:30→21:32)
[2020-11-19] MEDS: PRENATAL VITAMINS W/ FOLIC ACID TABLET (FP) PO SCH (10:30)
[2020-11-19] MEDS: NICOTINE 10 MG CARTRIDGE (INHALER) IH PRN (10:30)
[2020-11-19] MEDS: MELATONIN 5 MG TABLETS PO SCH (21:32)
[2020-11-19] MEDS: THIAMINE HCL 100 MG TABLET (FP) PO SCH (21:32)
[2020-11-20] MEDS ORDERED: methaDONE HCL 40 MG DISPERSABLE TABLET ONE (03:09)
[2020-11-20] MEDS ORDERED: methaDONE HCL 10 MG TABLET ONE (03:10)
[2020-11-20] MEDS: IBUPROFEN 400 MG TABLET (FP) PO PRN (06:35)
[2020-11-20 07:04] VITALS: BP 147/104; PULSE 104; TEMP 97.8
[2020-11-20] MEDS: PRENATAL VITAMINS W/ FOLIC ACID TABLET (FP) PO SCH (09:54)
[2020-11-20] MEDS: hydrOXYzine PAMOATE 25 MG CAPSULE (FP) PO PRN (09:54)
[2020-11-20] MEDS: NICOTINE 14 MG/24 HOURS TOPICAL PATCH TD SCH (09:55)
[2020-11-20] MEDS ORDERED: PT OWN MED DRAWER 7, Y5N ONE (09:58)
== END 2020-11-20 09:56 | disposition home or self-care (01) | DRG 772 ==
LOC: YASAS 11:41 → Y3W 11:43
PROVIDERS: ADMIT Allergy & Immunology; ATTEND Allergy & Immunology
PROC: HZ42ZZZ Group Counseling for Substance Abuse Treatment, Cognitive-Behavioral (ICD-10-PCS; principal; 2020-11-06)
DX: F10.20 Alcohol dependence, uncomplicated (principal); F11.20 Opioid dependence, uncomplicated; F13.20 Sedative, hypnotic or anxiolytic dependence, uncomplicated; F14.20 Cocaine dependence, uncomplicated; F12.20 Cannabis dependence, uncomplicated; F41.9 Anxiety disorder, unspecified; R94.8 Abnormal results of function studies of other organs and systems; R03.0 Elevated blood-pressure reading, without diagnosis of hypertension
CPT/HCPCS: 70480-TC; 70486-TC; J0735

== ENCOUNTER 2022-01-06 18:13 | Inpatient (IN) | payer OTHER ==
[2022-01-06 20:33] VITALS: BMI 22.7
[2022-01-06] MEDS ORDERED: NALOXONE HCL (KLOXXADO) 8 MG SPRAY NS PRN (21:26)
[2022-01-06] MEDS ORDERED: MAG HYDROX/AL HYDROX/SIMETH 30 ML UNIT-DOSE CUP PO PRN (21:26)
[2022-01-06] MEDS ORDERED: LOPERAMIDE HCL 2 MG CAPSULE PO PRN (21:26)
[2022-01-06] MEDS ORDERED: IBUPROFEN 600 MG TABLET (FP) PO PRN (21:26)
[2022-01-06] MEDS ORDERED: ONDANSETRON *ODT* 4 MG TABLET SL PRN (21:26)
[2022-01-06] MEDS ORDERED: NICOTINE POLACRILEX 2 MG GUM BUC PRN (21:26)
[2022-01-06] MEDS ORDERED: IBUPROFEN 400 MG TABLET (FP) PO PRN (21:26)
[2022-01-06] MEDS ORDERED: BENZOCAINE/MENTHOL (CHLORASEPTIC ) LOZENGE MM PRN (21:26)
[2022-01-06] MEDS ORDERED: METHOCARBAMOL 500 MG TABLET PO PRN (21:26)
[2022-01-06] MEDS ORDERED: BISMUTH SUBSALICYLATE 524 MG/30 ML PO PRN (21:26)
[2022-01-06] MEDS ORDERED: MAGNESIUM HYDROX 2400MG/30ML ORAL SUSPENSION 30 ML CUP PO PRN (21:26)
[2022-01-06] MEDS ORDERED: ACETAMINOPHEN 325 MG TABLET (FP) PO PRN ×2 (21:26)
[2022-01-06] MEDS ORDERED: MAGNESIUM CITRATE 300 ML BOTTLE PO PRN (21:26)
[2022-01-06] MEDS ORDERED: DICYCLOMINE HCL 10 MG CAPSULE PO PRN (21:26)
[2022-01-06] MEDS ORDERED: MELATONIN 5 MG TABLETS PO SCH (22:00)
[2022-01-06] MEDS: hydrOXYzine PAMOATE 25 MG CAPSULE (FP) PO PRN (23:35)
[2022-01-06] MEDS: THIAMINE HCL 100 MG TABLET (FP) PO SCH (23:36)
[2022-01-07] MEDS ORDERED: diazePAM 5 MG TABLET PO PRN (09:59)
[2022-01-07] MEDS ORDERED: methaDONE HCL 10 MG TABLET PO SCH (10:00)
[2022-01-07] MEDS: hydrOXYzine PAMOATE 25 MG CAPSULE (FP) PO PRN (10:21)
[2022-01-07] MEDS: PRENATAL VITAMINS W/ FOLIC ACID TABLET (FP) PO SCH (10:21)
[2022-01-07] MEDS: NICOTINE 14 MG/24 HOURS TOPICAL PATCH TD SCH (10:22)
[2022-01-07] MEDS: diazePAM 5 MG TABLET PO SCH ×3 (10:24→22:29)
[2022-01-07 15:27] LABS: HEMOGLOBIN 13.1 GM/dL (11.7-16.9); MCH 27.2 pg (25.7-33.7); MCHC 32.8 g/dl (32.0-35.9); MEAN CELL VOLUME 82.9 fl (80-96); MEAN PLT VOLUME 8.8 fl (7.5-11.1); PLATELET COUNT 220 10^3/uL (134-434); RBC 4.83 M/mm3 (4.00-5.60); RDW 15.7 % (11.9-15.9); WHITE BLOOD COUNT 6.1 K/mm3 (4.0-10.0)
[2022-01-07 17:47] LABS: CALCIUM 8.9 mg/dL (8.5-10.1)
[2022-01-07 17:48] LABS: ALBUMIN 3.9 g/dl (3.4-5.0); BLOOD UREA NITROGEN 13.1 mg/dL (7-18)
[2022-01-07 17:51] LABS: CREATININE 0.9 mg/dL (0.55-1.3)
[2022-01-07 17:52] LABS: BILIRUBIN,TOTAL 0.4 mg/dL (0.2-1)
[2022-01-07 17:53] LABS: TOT PROT 7.2 g/dl (6.4-8.2)
[2022-01-07 19:06] LABS: HIV INTERPRETATION NEGATIVE (NEGATIVE)
[2022-01-07] MEDS ORDERED: SUVOREXANT 10 MG TABLET PO PRN (22:00)
[2022-01-07] MEDS: THIAMINE HCL 100 MG TABLET (FP) PO SCH (22:11)
[2022-01-08] MEDS: diazePAM 5 MG TABLET PO SCH ×2 (05:25→10:32)
[2022-01-08 09:07] VITALS: BP 136/92; PULSE 58; RESP 16; TEMP 97.1
[2022-01-08] MEDS: PRENATAL VITAMINS W/ FOLIC ACID TABLET (FP) PO SCH (10:31)
[2022-01-08] MEDS: NICOTINE 14 MG/24 HOURS TOPICAL PATCH TD SCH (10:31)
[2022-01-09] MEDS ORDERED: diazePAM 5 MG TABLET PO SCH (06:00)
[2022-01-10] MEDS ORDERED: diazePAM 5 MG TABLET PO SCH (06:00)
[2022-01-11] MEDS ORDERED: diazePAM 5 MG TABLET PO ONE (06:00)
== END 2022-01-08 10:20 | disposition left against medical advice (07) | DRG 770 ==
LOC: YASAS 18:13 → UNDOADMIN 22:09 → Y6N 22:09
PROVIDERS: ADMIT Allergy & Immunology; ATTEND Surgery
PROC: HZ2ZZZZ Detoxification Services for Substance Abuse Treatment (ICD-10-PCS; principal; 2022-01-06)
DX: F13.230 Sedative, hypnotic or anxiolytic dependence with withdrawal, uncomplicated (principal); F11.20 Opioid dependence, uncomplicated; F10.20 Alcohol dependence, uncomplicated; F14.20 Cocaine dependence, uncomplicated; F17.210 Nicotine dependence, cigarettes, uncomplicated; F19.282 Other psychoactive substance dependence with psychoactive substance-induced sleep disorder; F19.24 Other psychoactive substance dependence with psychoactive substance-induced mood disorder; F41.9 Anxiety disorder, unspecified; R56.9 Unspecified convulsions; Z28.310 Unvaccinated for COVID-19; Z28.9 Immunization not carried out for unspecified reason; Z56.0 Unemployment, unspecified; Z59.00 Homelessness unspecified
CPT/HCPCS: 36415; 80053; 85027; 86780; 87389; 87811; 93005; 93010; C9803-CS; U0003; U0005

== ENCOUNTER 2022-02-12 20:11 | Inpatient (IN) | payer OTHER ==
[2022-02-12 21:05] VITALS: BMI 23.1
[2022-02-12] MEDS ORDERED: BISMUTH SUBSALICYLATE 524 MG/30 ML PO PRN (21:34)
[2022-02-12] MEDS ORDERED: POLYETHYLENE GLYCOL (HEALTHYLAX) 3350 17 GM PACKET PO PRN (21:34)
[2022-02-12] MEDS ORDERED: BENZOCAINE/MENTHOL (CHLORASEPTIC ) LOZENGE MM PRN (21:34)
[2022-02-12] MEDS ORDERED: ONDANSETRON *ODT* 4 MG TABLET SL PRN (21:34)
[2022-02-12] MEDS ORDERED: MAGNESIUM HYDROX 2400MG/30ML ORAL SUSPENSION 30 ML CUP PO PRN (21:34)
[2022-02-12] MEDS ORDERED: NALOXONE HCL 0.4 MG/ML VIAL IM PRN (21:34)
[2022-02-12] MEDS ORDERED: hydrOXYzine PAMOATE 25 MG CAPSULE (FP) PO PRN (21:34)
[2022-02-12] MEDS ORDERED: LOPERAMIDE HCL 2 MG CAPSULE PO PRN (21:34)
[2022-02-12] MEDS ORDERED: DICYCLOMINE HCL 10 MG CAPSULE PO PRN (21:34)
[2022-02-12] MEDS ORDERED: P-EPHED 60MG/TRIPROLIDI 2.5MG TABLET PO PRN (21:34)
[2022-02-12] MEDS ORDERED: guaiFENesin 200 MG/10 ML 10 ML UNIT-DOSE CUPS PO PRN (21:34)
[2022-02-12] MEDS ORDERED: ACETAMINOPHEN 325 MG TABLET (FP) PO PRN ×2 (21:34)
[2022-02-12] MEDS ORDERED: IBUPROFEN 400 MG TABLET (FP) PO PRN (21:34)
[2022-02-12] MEDS ORDERED: METHOCARBAMOL 500 MG TABLET PO PRN (21:34)
[2022-02-12] MEDS ORDERED: IBUPROFEN 600 MG TABLET (FP) PO PRN (21:34)
[2022-02-12] MEDS ORDERED: MAG HYDROX/AL HYDROX/SIMETH 30 ML UNIT-DOSE CUP PO PRN (21:34)
[2022-02-12] MEDS ORDERED: NALOXONE HCL (KLOXXADO) 8 MG SPRAY NS PRN (21:34)
[2022-02-12] MEDS: diazePAM 5 MG TABLET PO PRN (23:17)
[2022-02-12] MEDS: THIAMINE HCL 100 MG TABLET (FP) PO SCH (23:17)
[2022-02-12] MEDS: MELATONIN 5 MG TABLETS PO SCH (23:18)
[2022-02-12] MEDS: NICOTINE 10 MG CARTRIDGE (INHALER) IH PRN (23:18)
[2022-02-13] MEDS: NICOTINE 10 MG CARTRIDGE (INHALER) IH PRN (05:53)
[2022-02-13] MEDS ORDERED: methaDONE HCL 10 MG TABLET PO ONE (06:00)
[2022-02-13] MEDS ORDERED: PRENATAL VITAMINS W/ FOLIC ACID TABLET (FP) PO SCH (10:00)
[2022-02-13 10:22] LABS: HEMATOCRIT 35.3 % (35.4-49); HEMOGLOBIN 11.7 GM/dL (11.7-16.9); MCH 27.4 pg (25.7-33.7); MCHC 33.1 g/dl (32.0-35.9); MEAN CELL VOLUME 82.7 fl (80-96); MEAN PLT VOLUME 8.7 fl (7.5-11.1); PLATELET COUNT 229 10^3/uL (134-434); RBC 4.27 M/mm3 (4.00-5.60); RDW 15.4 % (11.9-15.9); WHITE BLOOD COUNT 6.5 K/mm3 (4.0-10.0)
[2022-02-13 10:27] LABS: CALCIUM 8.8 mg/dL (8.5-10.1)
[2022-02-13 10:28] LABS: ALBUMIN 3.4 g/dl (3.4-5.0); BLOOD UREA NITROGEN 9.4 mg/dL (7-18)
[2022-02-13 10:31] LABS: CREATININE 0.9 mg/dL (0.55-1.3)
[2022-02-13 10:32] LABS: BILIRUBIN,TOTAL 0.4 mg/dL (0.2-1); TOT PROT 6.5 g/dl (6.4-8.2)
[2022-02-13] MEDS: diazePAM 5 MG TABLET PO PRN ×2 (10:33→22:33)
[2022-02-13] MEDS: MELATONIN 5 MG TABLETS PO SCH (22:31)
[2022-02-13] MEDS: THIAMINE HCL 100 MG TABLET (FP) PO SCH (22:35)
[2022-02-14 06:01] VITALS: RESP 16
[2022-02-14] MEDS ORDERED: methaDONE HCL 10 MG TABLET PO SCH (07:30)
[2022-02-14 09:16] VITALS: BP 127/79; PULSE 54; TEMP 97.7
== END 2022-02-14 09:51 | disposition home or self-care (01) | DRG 773 ==
LOC: YASAS 20:11 → Y6N 22:00
PROVIDERS: ADMIT Allergy & Immunology; ATTEND Surgery
PROC: HZ2ZZZZ Detoxification Services for Substance Abuse Treatment (ICD-10-PCS; principal; 2022-02-12)
DX: F11.23 Opioid dependence with withdrawal (principal); F13.20 Sedative, hypnotic or anxiolytic dependence, uncomplicated; F12.20 Cannabis dependence, uncomplicated; F17.210 Nicotine dependence, cigarettes, uncomplicated; F41.9 Anxiety disorder, unspecified
CPT/HCPCS: 36415; 80053; 85027; 86780; C9803-CS; Q0162; U0003; U0005

== ENCOUNTER 2022-08-12 13:58 | Inpatient (IN) | payer OTHER ==
[2022-08-12 14:56] VITALS: BMI 20.2
[2022-08-12] MEDS ORDERED: IBUPROFEN 400 MG TABLET (FP) PO PRN (16:26)
[2022-08-12] MEDS ORDERED: POLYETHYLENE GLYCOL (HEALTHYLAX) 3350 17 GM PACKET PO PRN (16:26)
[2022-08-12] MEDS ORDERED: DICYCLOMINE HCL 10 MG CAPSULE PO PRN (16:26)
[2022-08-12] MEDS ORDERED: guaiFENesin 600 MG TABLET.ER (FP) PO PRN (16:26)
[2022-08-12] MEDS ORDERED: MAG HYDROX/AL HYDROX/SIMETH 30 ML UNIT-DOSE CUP PO PRN (16:26)
[2022-08-12] MEDS ORDERED: ONDANSETRON *ODT* 4 MG TABLET SL PRN (16:26)
[2022-08-12] MEDS ORDERED: NALOXONE HCL (KLOXXADO) 8 MG SPRAY NS PRN (16:26)
[2022-08-12] MEDS ORDERED: BENZONATATE 200 MG CAPSULE PO PRN (16:26)
[2022-08-12] MEDS ORDERED: ACETAMINOPHEN 325 MG TABLET (FP) PO PRN (16:26)
[2022-08-12] MEDS ORDERED: BENZOCAINE/MENTHOL (CHLORASEPTIC ) LOZENGE MM PRN (16:26)
[2022-08-12] MEDS ORDERED: NALOXONE HCL 0.4 MG/ML VIAL IM PRN (16:26)
[2022-08-12] MEDS ORDERED: LOPERAMIDE HCL 2 MG CAPSULE PO PRN (16:26)
[2022-08-12] MEDS ORDERED: MAGNESIUM HYDROX 2400MG/30ML ORAL SUSPENSION 30 ML CUP PO PRN (16:26)
[2022-08-12] MEDS ORDERED: IBUPROFEN 600 MG TABLET (FP) PO PRN (16:26)
[2022-08-12] MEDS ORDERED: hydrOXYzine PAMOATE 25 MG CAPSULE (FP) PO PRN (16:26)
[2022-08-12] MEDS ORDERED: BISMUTH SUBSALICYLATE 524 MG/30 ML PO PRN (16:26)
[2022-08-12] MEDS ORDERED: NICOTINE 10 MG CARTRIDGE (INHALER) IH PRN (16:26)
[2022-08-12] MEDS: METHOCARBAMOL 500 MG TABLET PO PRN (19:01)
[2022-08-12] MEDS ORDERED: MELATONIN 5 MG TABLETS PO SCH (22:00)
[2022-08-12] MEDS: THIAMINE HCL 100 MG TABLET (FP) PO SCH (23:38)
[2022-08-13] MEDS ORDERED: methaDONE HCL 10 MG TABLET PO SCH (06:00)
[2022-08-13] MEDS: METHOCARBAMOL 500 MG TABLET PO PRN (06:19)
[2022-08-13] MEDS: NICOTINE 14 MG/24 HOURS TOPICAL PATCH TD SCH (10:51)
[2022-08-13] MEDS: PRENATAL VITAMINS W/ FOLIC ACID TABLET (FP) PO SCH (10:51)
[2022-08-13] MEDS ORDERED: diazePAM 5 MG TABLET PO PRN (12:05)
[2022-08-13 12:25] LABS: HEMATOCRIT 40.5 % (35.4-49); MCH 26.4 pg (25.7-33.7); MEAN CELL VOLUME 82.3 fl (80-96); MEAN PLT VOLUME 8.7 fl (7.5-11.1); PLATELET COUNT 235 10^3/uL (134-434); RBC 4.92 M/mm3 (4.00-5.60); RDW 16.2 % (11.9-15.9); WHITE BLOOD COUNT 7.1 K/mm3 (4.0-10.0)
[2022-08-13 13:20] LABS: POTASSIUM 4.4 mmol/L (3.5-5.1)
[2022-08-13 13:55] LABS: BILIRUBIN,TOTAL 0.4 mg/dL (0.2-1)
[2022-08-13 13:58] LABS: ALBUMIN 3.8 g/dl (3.4-5.0); BLOOD UREA NITROGEN 11.4 mg/dL (7-18)
[2022-08-13 13:59] LABS: CALCIUM 8.7 mg/dL (8.5-10.1)
[2022-08-13 14:02] LABS: CREATININE 0.8 mg/dL (0.55-1.3); TOT PROT 6.9 g/dl (6.4-8.2)
[2022-08-13] MEDS: diazePAM 5 MG TABLET PO SCH ×2 (17:20→22:41)
[2022-08-13] MEDS: THIAMINE HCL 100 MG TABLET (FP) PO SCH (22:37)
[2022-08-13] MEDS: SUVOREXANT 10 MG TABLET PO PRN (22:40)
[2022-08-14] MEDS: diazePAM 5 MG TABLET PO SCH ×4 (05:20→22:50)
[2022-08-14] MEDS: NICOTINE 14 MG/24 HOURS TOPICAL PATCH TD SCH (10:41)
[2022-08-14] MEDS: PRENATAL VITAMINS W/ FOLIC ACID TABLET (FP) PO SCH (10:41)
[2022-08-14] MEDS: METHOCARBAMOL 500 MG TABLET PO PRN (10:42)
[2022-08-14] MEDS ORDERED: NICOTINE POLACRILEX 2 MG GUM BUC PRN (14:33)
[2022-08-14] MEDS: THIAMINE HCL 100 MG TABLET (FP) PO SCH (22:49)
[2022-08-14] MEDS: SUVOREXANT 10 MG TABLET PO PRN (22:49)
[2022-08-15] MEDS: diazePAM 5 MG TABLET PO SCH ×3 (05:43→22:46)
[2022-08-15] MEDS: PRENATAL VITAMINS W/ FOLIC ACID TABLET (FP) PO SCH (10:18)
[2022-08-15] MEDS: NICOTINE 14 MG/24 HOURS TOPICAL PATCH TD SCH (10:18)
[2022-08-15] MEDS: METHOCARBAMOL 500 MG TABLET PO PRN (10:19)
[2022-08-15] MEDS: SUVOREXANT 10 MG TABLET PO PRN (22:45)
[2022-08-15] MEDS: THIAMINE HCL 100 MG TABLET (FP) PO SCH (22:46)
[2022-08-16] MEDS: diazePAM 5 MG TABLET PO SCH ×2 (05:14→17:37)
[2022-08-16] MEDS: PRENATAL VITAMINS W/ FOLIC ACID TABLET (FP) PO SCH (10:40)
[2022-08-16] MEDS: METHOCARBAMOL 500 MG TABLET PO PRN (10:40)
[2022-08-16] MEDS: NICOTINE 14 MG/24 HOURS TOPICAL PATCH TD SCH (10:42)
[2022-08-16] MEDS: THIAMINE HCL 100 MG TABLET (FP) PO SCH (22:27)
[2022-08-16] MEDS: SUVOREXANT 10 MG TABLET PO PRN (22:57)
[2022-08-17] MEDS ORDERED: diazePAM 5 MG TABLET PO ONE (06:00)
[2022-08-17] MEDS: PRENATAL VITAMINS W/ FOLIC ACID TABLET (FP) PO SCH (09:51)
[2022-08-17] MEDS: METHOCARBAMOL 500 MG TABLET PO PRN (09:51)
[2022-08-17] MEDS: NICOTINE 14 MG/24 HOURS TOPICAL PATCH TD SCH (09:51)
[2022-08-17] MEDS: THIAMINE HCL 100 MG TABLET (FP) PO SCH (22:13)
[2022-08-17] MEDS: SUVOREXANT 10 MG TABLET PO PRN (22:13)
[2022-08-18 07:10] VITALS: RESP 16; TEMP 97.7
[2022-08-18 09:25] VITALS: BP 112/63; PULSE 57
[2022-08-18] MEDS: PRENATAL VITAMINS W/ FOLIC ACID TABLET (FP) PO SCH (10:14)
[2022-08-18] MEDS: NICOTINE 14 MG/24 HOURS TOPICAL PATCH TD SCH (10:14)
== END 2022-08-18 10:28 | disposition home or self-care (01) | DRG 773 ==
LOC: YASAS 13:58 → Y6N 16:46
PROVIDERS: ADMIT Allergy & Immunology; ATTEND Surgery
PROC: HZ2ZZZZ Detoxification Services for Substance Abuse Treatment (ICD-10-PCS; principal; 2022-08-12)
DX: F10.230 Alcohol dependence with withdrawal, uncomplicated (principal); F13.230 Sedative, hypnotic or anxiolytic dependence with withdrawal, uncomplicated; F11.20 Opioid dependence, uncomplicated; F12.20 Cannabis dependence, uncomplicated; F17.210 Nicotine dependence, cigarettes, uncomplicated; I10 Essential (primary) hypertension; B18.2 Chronic viral hepatitis C
CPT/HCPCS: 36415; 80053; 82140; 85027; 86780; 93005; 93010; C9803-CS; U0003; U0005